=== PATIENT | female | born 1980 | race Caucasian/White ===

== ENCOUNTER 2022-09-30 13:12 | Outpatient (OUT) | payer OTHER, SELFPAY | END 2022-09-30 13:13 | disposition home or self-care (01) | LOC: PST 13:16 | PROVIDERS: Visit Provider Obstetrics & Gynecology | DX: Z01.818 Encounter for other preprocedural examination (principal); N89.8 Other specified noninflammatory disorders of vagina ==

== ENCOUNTER 2022-10-04 10:38 | Day surgery (SDC) | payer OTHER, SELFPAY ==
[2022-09-30 13:33] VITALS: BP 139/97; PULSE 63; RESP 18; TEMP 36.6; O2SAT 99; BMI 21.9
[2022-10-04] VITALS (8 sets, daily range): BP systolic 116–152; BP diastolic 70–98; PULSE 54–74; RESP 14–22; TEMP 36–36.5; O2SAT 99–100
[2022-10-04 10:46] LABS: Basophils Absolute Auto 0.1 10^3/uL (0.0-0.1); Basophils Percent Auto 0.6 % (0.2-2.0); Eosinophils Absolute Auto 0.3 10^3/uL (0.0-0.7); Eosinophils Percent Auto 4.2 % (0.9-7.0); Hematocrit 38.1 % (36.0-48.0); Hemoglobin 12.8 g/dL (12.0-16.0); Immature Granulocytes Abs Auto 0.03 10^3/uL (0.00-0.03); Immature Granulocytes Pct Auto 0.4 % (0.0-0.5); Lymphocytes Absolute Auto 2.1 10^3/uL (1.2-3.8); Lymphocytes Percent Auto 26.4 % (20.5-60.0); Mean Corpuscular HGB Conc 33.6 g/dL (29.9-35.2); Mean Corpuscular Hemoglobin 30.1 pg (26.7-34.0); Mean Corpuscular Volume 89.6 fL (81.0-99.0); Monocytes Absolute Auto 0.6 10^3/uL (0.3-0.8); Monocytes Percent Auto 7.8 % (1.7-12.0); Neutrophils Absolute Auto 4.9 10^3/uL (1.4-6.5); Neutrophils Percent Auto 60.6 % (43.0-75.0); Platelet Count 310 10^3/uL (150-450); Red Blood Count 4.25 10^6/uL (4.20-5.40); Red Cell Distribution Width 12.6 % (11.0-15.0); White Blood Count 8.1 10^3/uL (4.0-11.0)
[2022-10-04] MEDS: LACTATED RINGER'S SOLUTION 1,000 ML 50 ML IV (11:13)
[2022-10-04] MEDS: SCOPOLAMINE 1 EACH PATCH.TD.3 1 PATCH TD (11:14)
--- NOTE | 2022-10-04 14:40 | PC.NURSE ---
PATIENT HAD A RED RUBBER CATH INSERTED BY Samara WISE RN AT BEGINNING OF CASE. PATIENT HAD 200 ML OF CLEAR YELLOW URINE DRAINED FROM HER BLADDER. CATHETER WAS D/C'ED PER ORDERS.
--- NOTE | 2022-10-04 14:51 | PM.ONB ---
Brief Operative Note Date of procedure: 10/04/22 Pre-op diagnosis: lt clitoral abscess Post-op diagnosis: same Procedure: I&D of clitoral abscess. pt was taken back to or, prepped and drapped in normal sterile fashion, The clitoral abscess was identified, a small incision was made, drainage of abscess, irrigation performed after cultures obtained, exploratin of abcess peformed all contents removed, incision closed with 4-0 vicryl interrupted, excellent hemostasis, sponge lap and needle counts correct times 2 Anesthesia: GETA Surgeon: Jorge Luis Pearl Estimated blood loss (mL): 5 Pathology: none sent Condition: stable Disposition: PACU
[2022-10-04] MEDS: KETOROLAC TROMETHAMINE 30 MG/ML VIAL IVP (15:11)
[2022-10-04] MEDS: HYDROCODONE/ACETAMINOPHEN 5-325 MG TABLET 1 TAB PO (15:12)
--- NOTE | 2022-10-04 15:33 | PC.NURSE ---
peripad intact with scant bloody drainage
--- NOTE | 2022-10-04 15:37 | PC.NURSE ---
medicated for pain as ordered with Toradol and Vicodin; scant drainage on peripad
--- NOTE | 2022-10-04 16:23 | PC.NURSE ---
no active drainage from perineal area
== END 2022-10-04 16:00 | disposition home or self-care (01) ==
PROVIDERS: Visit Provider Obstetrics & Gynecology
PROC: (CPT 00400; principal; 2022-10-04 11:50)
DX: N89.8 Other specified noninflammatory disorders of vagina (principal)
CPT/HCPCS: 00400; 56405; 36415; 85025; 87070; 87076; 87150; 87186; 99999; J2704

== ENCOUNTER 2024-06-02 19:42 | Outpatient (REF) | payer OTHER, SELFPAY ==
[2024-06-07 15:08] LABS: Age Gdln ACOG Testing Note (.); HPV Aptima Negative (Negative); IGP, Aptima HPV, rfx 16/18,45 Note (.)
== END 2024-06-02 19:43 | disposition home or self-care (01) ==
LOC: LAB 19:42
PROVIDERS: Visit Provider Physician Assistant
DX: Z01.419 Encounter for gynecological examination (general) (routine) without abnormal findings (principal)
CPT/HCPCS: 87624; 88175

== ENCOUNTER 2024-07-02 09:37 | Outpatient (OUT) | payer OTHER, SELFPAY | END 2024-07-02 09:38 | disposition home or self-care (01) | LOC: PST 09:38 | PROVIDERS: Visit Provider Obstetrics & Gynecology | DX: Z01.818 Encounter for other preprocedural examination (principal); N90.7 Vulvar cyst; N94.89 Other specified conditions associated with female genital organs and menstrual cycle ==

== ENCOUNTER 2024-07-16 07:07 | Day surgery (SDC) | payer OTHER, SELFPAY ==
[2024-07-02 10:04] VITALS: BP 122/78; PULSE 63; TEMP 36.3; O2SAT 99; BMI 21.9
--- OUTSIDE RECORDS SUMMARY | 2024-07-16 07:10 | XMS_ITS | CCD ---
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 Name Role Phone KWAN, JASVIR Unavailable Unavailable KWAN, JASVIR Unavailable Unavailable Gorty, Eduardo S Unavailable Unavailable Provider, None Unavailable Unavailable KWAN, JASVIR Unavailable Unavailable KWAN, JASVIR Unavailable Unavailable Provider, Unlisted Unavailable Unavailable DO Ruthie Garsia Primary Care Provider DO Liz Taveras Attending Provider ARTIS, DR ENG Consulting Unavailable KARASIK, DR ENG Attending Unavailable [facility] Primary Care Unavailable KARASIK, DR ENG Admitting Unavailable AGUBOSIM, BEATRIS Consulting Unavailable LIZ TAVERAS Consulting Unavailable KARASIK, DR ENG Consulting Unavailable KARASIK, DR ENG Attending Unavailable [facility] Unavailable KARASIK, DR ENG Admitting Unavailable ZIEBER, DR HERNAN Rojas Consulting Unavailable KARASIK, DR ENG Admitting Unavailable KARASIK, DR ENG Consulting Unavailable [facility] Care Unavailable KARASIK, DR ENG Attending Unavailable ZIEBER, DR HERNAN Rojas Consulting Unavailable Liz Taveras Attending Unavailable Liz Taveras Admitting Unavailable Ruthie Garsia Primary Care Unavailable [facility] Primary Care Unava ilable Unavailable Primary Care Provider UnavailJULISA Golden Attending Unavailable DONNY PEARL Attending Unavailable DONNY PEARL Attending Unavailable Allergies Allergy Classification Reported Allergen(s) Allergy Type Date of Onset Reaction(s) Facility (1 source) No Known Medication Allergies; Translations: [No Known Medication Allergies] Propensity to adverse reactions to drug (disorder) [facility] Repository Problems Active Problems Problem Classification Problem Date Documented Date Episodic/Chronic Abdominal pain (3 sources) Pelvic and perineal pain; Translations: [PELVIC AND PERINEAL PAIN] Onset: 11-28-2021 Episodic Nonmalignant breast conditions (1 source) Fibroadenosis of right breast; Translations: [FIBROADENOSIS OF RIGHT BREAST] Onset: 09-05-2021 Chronic Open wounds of extremities (3 sources) Laceration without foreign body of left index finger without damage to nail, initial encounter; Translations: [Laceration of finger] Onset: 10-18-2023 Episodic Other female genital disorders (2 sources) Labial cyst; Translations: [Vulvar cyst] 06-02-2024 Episodic Other screening for suspected conditions (not mental disorders or infectious disease) (2 sources) Patient encounter status; Translations: [Encounter for screening mammogram for malignant neoplasm of breast] 06-02-2024 Episodic Substance-related disorders (1 source) Nicotine dependence, cigarettes, uncomplicated; Translations: [NICOTINE DEPEND CIGARETTES UNCOMP] Onset: 12-05-2021 Chronic Unclassified (1 source) CONTACT W/AND (SUSP) EXPOS COVID-19; Translations: [CONTACT W/AND (SUSP) EXPOS COVID-19] Onset: 12-05-2021 Past or Other Problems Problem Classification Problem Date Documented Da te Episodic/Chronic Inflammatory diseases of female pelvic organs (6 sources) Abscess of vulva; Translations: [Abscess of vulva] Onset: 11-28-2021 10-15-2022 Episodic Nonmalignant breast conditions (7 sources) Unspecified lump in the right breast, upper outer quadrant; Translations: [Unspecified lump in unspecified breast] Onset: 08-21-2021 Episodic Results Test Name Value Interpretation Reference Range Facility IGP,APTIMA HPV,AGE GDLNon AGE GDLN ACOG TESTING Note . [facility] Comment on above: TESTS RESULT FLAG UN ITS REF RANGE LAB Clinician Provided Cytology Information Source.............Vagina No. of containers..01 ThinPrep Vial Age Algo ACOG Ellie... 30-65 01 FLAG LEGEND: L-Low Normal,H-High Normal,LL-Alert Low,HH-Alert High <-Panic Low,>-Panic High,A-Abnormal,AA-Critical Abnormal Performed at: 01 =[address] [address] Steff Pineda MD, HPV APTIMA Negative Negative [facility] Comment on above: This nucleic acid am plification test detects fourteen high- risk HPV types (16,18,31,33,35,39,45,51,52,56,58,59,66,68) without differentiation. Performed at: =[address] [id number] Market Risk Specialist: Steff Pineda MD, Phone: [phone] Performed at: [address] [id number] Market Risk Specialist: Steff Pineda MD, Phone: [phone] IGP, APTIMA HPV, RFX 16/18,45 Note . [facility] Comment on above: TESTS RESULT FLAG UN ITS REF RANGE LAB DIAGNOSIS: 02 NEGATIVE FOR INTRAEPITHELIAL LESION OR MALIGNANCY. Specimen adequacy: 02 Satisfactory for evaluation. No endocervical component is identified. Performed by: Lenora Bird Movers . 02 Note: Note 02 The Pap smear is a screening test designed to aid in the detection of premalignant and malignant conditions of the uterine cervix. It is not a diagnostic procedure and should not be used as the sole means of detecting cervical cancer. Both false-positive and false-negative reports do occur. Test Methodology: Note 02 This liquid based ThinPrep(R) pap test was screened with the use of an image guided system. HPV Genotype Reflex Note 02 Criteria not met, HPV Genotype not performed. FLAG LEGEND: L-Low Normal,H-High Normal,LL-Alert Low,HH-Alert High <-Panic Low,>-Panic High,A-Abnormal,AA-Critical Abnormal Performed at: [address] [address] Steff Pineda MD, SPATULA-ALONE VAGINA [facility] WOUND CULTUREon 12-04-2021 Bacteria identified Aer cx Nom (Unsp spec) Final report Normal [facility] Comment on above: Performed By: #### C XWND #### [facility] [address] [place] [address] Dr. Yaritza Olson Result 1 Mixed skin aury Normal [facility] Comment on above: Performed By: #### C XWND #### [facility] [address] [place] [address] Dr. Yaritza Olson CBC AUTO DIFFon 11-28-2021 BASO # 0.1 103/ul Normal 0.0-0.1 [facility] Comment on above: Performed By: #### EVGENY RODRIGUEZ #### [facility] [address] [place] [address] Dr. Yaritza Olson Basophils/100 WBC (Bld) 0.5 % Normal 0.2-2.0 [facility] Comment on above: Performed By: #### MARCIE RODRIGUEZR #### [facility] [address] [place] [address] Dr. Yaritza Olson EO # 0.1 103/ul Normal 0.0-0.7 [facility] Comment on above: Performed By: #### P REGU, ERUR #### [facility] [address] [place] [address] Dr. Yaritza Olson Eosinophils/100 WBC (Bld) 0.9 % Normal 0.9-7.0 [facility] Comment on above: Performed By: #### P REGU, ERUR #### [facility] [address] [place] [address] Dr. Yaritza Olson Erythrocyte distribution width (RBC) [Ratio] 12.4 % Normal 11.0-15.0 [facility] Comment on above: Performed By: #### P REGU, ERUR #### [facility] [address] [place] [address] Dr. Yaritza Olson Hematocrit (Bld) [Volume fraction] 36.0 % Normal 36.0-48.0 [facility] Comment on above: Performed By: #### P REGU, ERUR #### [facility] [address] [place] [address] Dr. Yaritza Olson Hemoglobin (Bld) [Mass/Vol] 12.0 g/dL Normal 12.0-16.0 [facility] Comment on above: Performed By: #### P REGU, ERUR #### [facility] [address] [place] [address] Dr. Yaritza Olson IG # 0.05 10e3/ul Critically high 0.00-0.03 [facility] Comment on above: Performed By: #### P REGU, ERUR #### [facility] [address] [place] [address] Dr. Yaritza Olson IG % 0.4 % Normal 0.0-0.5 [facility] Comment on above: Performed By: #### P REGU, ERUR #### [facility] [address] [place] [address] Dr. Yaritza Olson LYMPH # 1.1 103/ul Critically low 1.2-3.8 [facility] Comment on above: Performed By: #### P REGU, ERUR #### [facility] [address] [place] [address] Dr. Yaritza Olson Lymphocytes/100 WBC (Bld) 8.6 % Critically low 20.5-60.0 [facility] Comment on above: Performed By: #### P REGU, ERUR #### [facility] [address] [place] [address] Dr. Yaritza Olson MANUAL DIFF REQ NO Normal [facility] Comment on above: Performed By: #### P REGU, ERUR #### [facility] [address] [place] [address] Dr. Yaritza Olson MCH (RBC) [Entitic mass] 30.4 pg Normal 26.7-34.0 [facility] Comment on above: Performed By: #### P REGU, ERUR #### [facility] [address] [place] [address] Dr. Yaritza Olson MCHC (RBC) [Mass/Vol] 33.3 g/dL Normal 29.9-35.2 [facility] Comment on above: Performed By: #### P REGU, ERUR #### [facility] [address] [place] [address] Dr. Yaritza Olson MCV (RBC) [Entitic vol] 91.1 fL Normal 81.0-99.0 [facility] Comment on above: Performed By: #### P REGU, ERUR #### [facility] [address] [place] [address] Dr. Yaritza Olson MONO # 0.8 103/ul Normal 0.3-0.8 [facility] Comment on above: Performed By: #### P REGU, ERUR #### [facility] [address] [place] [address] Dr. Yaritza Olson Monocytes/100 WBC (Bld) 6.2 % Normal 1.7-12.0 [facility] Comment on above: Performed By: #### P REGU, ERUR #### [facility] [address] [place] [address] Dr. Yaritza Olson NEUT # 11.1 103/ul Critically high 1.4-6.5 [facility] Comment on above: Performed By: #### P REGU, ERUR #### [facility] [address] [place] [address] Dr. Yaritza Olson Neutrophils/100 WBC (Bld) 83.4 % Critically high 43.0-75.0 [facility] Comment on above: Performed By: #### P REGU, ERUR #### [facility] [address] [place] [address] Dr. Yaritza Olson Platelet mean volume (Bld) [Entitic vol] 9.5 fL Normal 9.5-13.5 [facility] Comment on above: Performed By: #### P REGU, ERUR #### [facility] [address] [place] [address] Dr. Yaritza Olson PLT 298 103/ul Normal 150-450 [facility] Comment on above: Performed By: #### P REGU, ERUR #### [facility] [address] [place] [address] Dr. Yaritza Olson RBC 3.95 106/ul Critically low 4.20-5.40 [facility] Comment on above: Performed By: #### P REGU, ERUR #### [facility] [address] [place] [address] Dr. Yaritza Olson WBC 13.3 103/ul Critically high 4.0-11.0 [facility] Comment on above: Performed By: #### P REGU, ERUR #### [facility] [address] [place] [address] Dr. Yaritza Olson Covid-19 PCR ([facility])on 10-31 SARS-CoV-2 (COVID-19) RNA CHARLY+probe Ql (Unsp spec) Not detected Normal NOT DETECTED [facility] Comment on above: Result Comment: When diagnostic testing is negative, the possibility of a false negative should be considered in the context of a patient's recent exposures and the presence of clinical signs and symptoms consistent with SARS-CoV-2. This test is not yet approved or cleared by the [place] FDA. When there are no FDA-approved or cleared tests available, and other criteria are met, FDA can make tests available under an emergency access mechanism called an Emergency Use Authorization (EUA). The EUA for this test is supported by the [employer] of Health and Human Service's declaration that circumstances exist to justify the emergency use of in vitro diagnostics for the detection and/or diagnosis of the virus that causes COVID-19. This EUA will remain in effect for the duration of the COVID-19 declaration justifying emergency of IVDs, unless it is terminated or revoked by the FDA (after which the test may no longer be used). Performed By: #### C VDTBH #### [facility] [address] [place] [address] Dr. Yaritza Olson ER URINE PROFILEon 2 Bilirubin Ql (U) Negative Normal NEGATIVE [facility] Comment on above: Performed By: #### P REGU, ERUR #### [facility] [address] [place] [address] Dr. Yaritza Olson Clarity (U) CLEAR Normal CLEAR [facility] Comment on above: Performed By: #### P REGU, ERUR #### [facility] [address] [place] [address] Dr. Yaritza Olson Color (U) YELLOW Normal YELLOW [facility] Comment on above: Performed By: #### P REGU, ERUR #### [facility] [address] [place] [address] Dr. Yaritza Olson ERUMARY JOD A micrscopic examina tion will be performed if indicated. Normal [facility] Comment on above: Performed By: #### P REGU, ERUR #### [facility] [address] [place] [address] Dr. Yaritza Olson Glucose Ql (U) Negative Normal NEGATIVE [facility] Comment on above: Performed By: #### P REGU, ERUR #### [facility] [address] [place] [address] Dr. Yaritza Olson Hemoglobin Ql (U) Negative Normal NEGATIVE [facility] Comment on above: Performed By: #### P REGU, ERUR #### [facility] [address] [place] [address] Dr. Yaritza Olson Ketones Ql (U) TRACE Abnormal NEGATIVE [facility] Comment on above: Performed By: #### P REGU, ERUR #### [facility] [address] [place] [address] Dr. Yaritza Olson LEUKOCYTES Negative Normal NEGATIVE [facility] Comment on above: Performed By: #### P REGU, ERUR #### [facility] [address] [place] [address] Dr. Yaritza Olson Nitrite Ql (U) Negative Normal NEGATIVE [facility] Comment on above: Performed By: #### P REGU, ERUR #### [facility] [address] [place] [address] Dr. Yaritza Olson pH (U) 6.0 [pH] Normal 5-9 [facility] Comment on above: Performed By: #### P REGU, ERUR #### [facility] [address] [place] [address] Dr. Yaritza Olson SPEC GRAVITY 1.025 Normal 1.005-<=1.0 25 [facility] Comment on above: Performed By: #### P REGU, ERUR #### [facility] [address] [place] [address] Dr. Yaritza Olson UA PROTEIN TRACE Normal NEGATIVE/ TRACE [facility] Comment on above: Performed By: #### P REGU, ERUR #### [facility] [address] [place] [address] Dr. Yaritza Olson UR MICRO IND NOT INDICATED Normal [facility] Comment on above: Performed By: #### P REGU, ERUR #### [facility] [address] [place] [address] Dr. Yaritza Olson Urobilinogen Qn (U) 0.2 {Get'U}/dL Normal 0.2 - 1. 0 [facility] Comment on above: Performed By: #### P REGU, ERUR #### [facility] [address] [place] [address] Dr. Yaritza Olson HCG,Quantitativeon 2 HCG,Quantitative < 0.60 Normal [facility] Comment on above: Result Comment: Appr oximate Approximate hCG Gestational Age Range (mIU/ml) (weeks) 0.2-1 5-50 1-2 50-500 2-3 100-5,000 3-4 500-10,000 4-5 1,000-50,000 5-6 10,000-100,000 6-8 15,000-200,000 8-12 10,000-100,000 PERFORMED BY: [place] [address] PATHOLOGIST [employer] WORKER QUITA SALTER M.D. Performed By: #### H CGQNT #### [place] [address] [place] PREG HCG QUALon 11-28-2021 , QUAL Negative Normal NEGATIVE [facility] Comment on above: Performed By: #### P REG #### [facility] [address] [place] [address] Dr. Yaritza Olson PREG QUANT HCGon 11-28-2021 HCG QUANT <1 Normal [facility] Comment on above: Performed By: #### P REGQNT #### [facility] [address] [place] [address] Dr. Yaritza Olson HCG RANGE SEE BELOW Normal [facility] Comment on above: Result Comment: 5-50 0.2-1 WEEK 50-500 1-2 WEEKS 100-5,000 2-3 WEEKS 500-10,000 3-4 WEEKS 1,000-50,000 4-5 WEEKS 10,000-100,000 5-6 WEEKS 15,000-200,000 6-8 WEEKS 10,000-100,000 2-3 MONTHS Performed By: #### P REGQNT #### [facility] [address] [place] [address] Dr. Yaritza Olson Result Comment: TEST PERFORMED AT: [facility] [address] [place] [address] URon 11-28-2021 , QUAL Negative Normal NEGATIVE [facility] Comment on above: Performed By: #### P REGU, ERUR #### [facility] [address] [place] [address] Dr. Yaritza Olson PROF CHEM 8 (BAS METB)on Anion gap [Moles/Vol] 14.2 mmol/L Normal [facility] Comment on above: Performed By: #### P REGU, ERUR #### [facility] [address] [place] [address] Dr. Yaritza Olson Calcium [Mass/Vol] 8.8 mg/dL Normal 8.5-10.1 [facility] Comment on above: Performed By: #### P REGU, ERUR #### [facility] [address] [place] [address] Dr. Yaritza Olson Chloride [Moles/Vol] 103 mmol/L Normal 98-107 [facility] Comment on above: Performed By: #### P REGU, ERUR #### [facility] [address] [place] [address] Dr. Yaritza Olson CO2 [Moles/Vol] 23.4 mmol/L Normal 21.0-32.0 [facility] Comment on above: Performed By: #### P REGU, ERUR #### [facility] [address] [place] [address] Dr. Yaritza Olson Creatinine [Mass/Vol] 0.76 mg/dL Normal 0.55-1.02 [facility] Comment on above: Performed By: #### P REGU, ERUR #### [facility] [address] [place] [address] Dr. Yaritza Olson EGFR-AF CYPRIOT >60 Normal >=60 [facility] Comment on above: Performed By: #### P REGU, ERUR #### [facility] [address] [place] [address] Dr. Yaritza Olson EGFR-NON AF CYPRIOT >60 Normal >=60 [facility] Comment on above: Performed By: #### P REGU, ERUR #### [facility] [address] [place] [address] Dr. Yaritza Olson Glucose [Mass/Vol] 98 mg/dL Normal 74-106 [facility] Comment on above: Performed By: #### P REGU, ERUR #### [facility] [address] [address] [address] Yaritza Olson Potassium [Moles/Vol] 3.6 mmol/L Normal 3.5-5.1 [facility] Comment on above: Performed By: #### P REGU, ERUR #### [facility] [address] [address] [address] Yaritza Olson Sodium [Moles/Vol] 137 mmol/L Normal 136-145 [facility] Comment on above: Performed By: #### P REGU, ERUR #### [facility] [address] [place] [address] Dr. Yaritza Olson Urea nitrogen [Mass/Vol] 8.0 mg/dL Normal 7.0-18.0 [facility] Comment on above: Performed By: #### P REGU, ERUR #### [facility] [address] [place] [address] Dr. Yaritza Olson Urea nitrogen/Creatinine [Mass ratio] 10.5 mg/mg Normal [facility] Comment on above: Performed By: #### P REGU, ERUR #### [facility] [address] [place] [address] Dr. Yaritza Olson Serum or plasma beta choriog onadotropin measurement (units/volume)Ordered By: Liz Taveras on 11-28-2021 HCG.beta subunit Qn m[IU]/mL [facility] Comment on above: Approximate Approxim ate hCG Gestational Age Range (mIU/ml) (weeks) 0.2-1 5-50 1-2 50-500 2-3 100-5,000 3-4 500-10,000 4-5 1,000-50,000 5-6 10,000-100,000 6-8 15,000-200,000 8-12 10,000-100,000 US VAC ASST BX BRST RT W CLI Gage 09-10-2021 US VAC ASST BX BRST RT W CLIP Begin Addendum #1 COLLECTED DATE/TIME: 08/29/2021 10:48 EDT Final Diagnosis Report for [facility] [place], [place] RIGHT BREAST MASS AT 10 O'CLOCK, ULTRASOUND GUIDED CORE BIOPSY: -FIBROADENOMATOUS CHANGES. 09/03/[address] Humphries. Verified with Tamera that report was present in office. Original Report PROCEDURE: ULTRASOUND BIOPSY VACCUUM ASSISTED, RIGHT WITH CLIP COMPARISON: US BREAST RIGHT LIMITED, 08/21/2021. MG MAMM DIAGNOSTIC 3D SUBHASH CAD, 08/21/2021. INDICATIONS: Mammographic mass of right breast. DESCRIPTION: After obtaining informed consent, a vacuum assisted ultrasound-guided biopsy was performed in the usual sterile manner. The location of the biopsy was then marked as indicated below. FINDINGS: RECOMMENDATIONS: SPECIMEN#, LOCATION: 4 core specimens, right breast 10 o'clock hypoechoic mass. BIOPSY NEEDLE: 13 gauge Elite vacuum core biopsy needle. MARKERS(S) PLACED: A single metallic marker was placed in the appropriate targeted location. MEDICATION: Buffered 1% lidocaine with epinephrine administered locally. COMPLICATIONS: None. PATHOLOGY LAB: Pending. CONCLUSION: 1. Uneventful ultrasound-guided breast biopsy. 2. Pathology results are pending. An addendum to this report will be provided after pathology results are available. Normal [facility] MAMMO POST BIOPSY RIGHTon MAMMO POST BIOPSY RIGHT Patient: KOLE AIKEN Exam Date: 08/29/2021 : 1980 Gender:F Ordering : DR VELASQUEZ HUMPHRIES . Admission #: [id number] Family : Order #: [id number] CLICK HERE TO VIEW EXAM RADIOLOGY REPORT PROCEDURE: MAMMOGRAM POST BIOPSY IMAGES COMPARISON: MG MAMM DIAGNOSTIC 3D SUBHASH CAD, 08/21/2021. US VAC ASST BX BRST RT W CLIP, 08/29/2021. INDICATIONS: Mammographic mass of right breast BREAST COMPOSITION: FINDINGS: BIOPSY MARKER: A metallic marker has been placed in the targeted location within the posterior upper-outer quadrant of the right breast. BREAST FINDINGS: Expected post biopsy findings. RECOMMENDATIONS: Dictated by: Hernan Zhong M.D. on 08/29/2021 at 11:38 Approved by: Hernan Zhong M.D. on 08/29/2021 at 11:38 Normal [facility] MG MAMM DIAGNOSTIC 3D SUBHASH CA Don 08-21-2021 MG MAMM DIAGNOSTIC 3D SUBHASH CAD Patient: KOLE AIKEN. Exam Date: 08/21/2021 : 1980 Gender:F Ordering : DR VELASQUEZ HUMPHRIES . Admission #: [id number] Family : Order #: [id number] CLICK HERE TO VIEW EXAM RADIOLOGY REPORT PROCEDURE: MAMMOGRAM DIAGNOSTIC 3D BILATERAL CAD, 08/21/2021, 09:56 ULTRASOUND BREAST RIGHT LIMITED, 08/21/2021, 10:31 COMPARISON: US BREAST LEFT LIMITED, 11/21/2015. MG MAMM DIAGNOSTIC 3D SUBHASH CAD, 11/21/2015. INDICATIONS: Breast lump Calculator Name NCI Breast Cancer Risk Assessment Tool 5 Year Breast Cancer Risk 0.90% Lifetime Breast Cancer Risk 10.90% Personal Breast Cancer No Personal Ovarian Cancer No Treatments None Family Cancers None LOCATION: [facility] BREAST COMPOSITION: Extremely dense, which lowers the sensitivity of mammography. FINDINGS: DIAGNOSTIC CATEGORY 4--SUSPICIOUS FOR MALIGNANCY. FINDING DOES NOT EXHIBIT CLASSIC FINDINGS OF BREAST CANCER: RIGHT BREAST: New 1 cm partially circumscribed mass within the posterior upper-outer quadrant. Ultrasound evaluation demonstrates a hypoechoic slightly heterogeneous but well-circumscribed 1.3 x 1.1 x 0.7 cm mass within the posterior upper-outer quadrant, 10 o'clock position within the axillary tail. Ultrasound-guided tissue sampling is recommended. Findings, recommendations, and alternatives were discussed with the patient. The patient desires to proceed with biopsy. Our radiology department nurse is working with the patient to schedule biopsy. LEFT BREAST: No significant suspicious finding. RECOMMENDATIONS: ULTRASOUND-GUIDED CORE BIOPSY: RIGHT BREAST PLEASE NOTE: A NORMAL MAMMOGRAM DOES NOT EXCLUDE THE POSSIBILITY OF BREAST CANCER. A CLINICALLY SUSPICIOUS PALPABLE LUMP SHOULD BE BIOPSIED. Dictated by: Hernan Zhong M.D. on 08/21/2021 at 10:49 Approved by: Hernan Zhong M.D. on 08/21/2021 at 11:10 Normal [facility] US BREAST RIGHT LIMITEDon US BREAST RIGHT LIMITED Patient: KOLE AIKEN. Exam Date: 08/21/2021 : 1980 Gender:F Ordering : DR VELASQUEZ HUMPHRIES . Admission #: [id number] Family : Order #: [id number] CLICK HERE TO VIEW EXAM RADIOLOGY REPORT PROCEDURE: MAMMOGRAM DIAGNOSTIC 3D BILATERAL CAD, 08/21/2021, 09:56 ULTRASOUND BREAST RIGHT LIMITED, 08/21/2021, 10:31 COMPARISON: US BREAST LEFT LIMITED, 11/21/2015. MG MAMM DIAGNOSTIC 3D SUBHASH CAD, 11/21/2015. INDICATIONS: Breast lump Calculator Name NCI Breast Cancer Risk Assessment Tool 5 Year Breast Cancer Risk 0.90% Lifetime Breast Cancer Risk 10.90% Personal Breast Cancer No Personal Ovarian Cancer No Treatments None Family Cancers None LOCATION: [facility] BREAST COMPOSITION: Extremely dense, which lowers the sensitivity of mammography. FINDINGS: DIAGNOSTIC CATEGORY 4--SUSPICIOUS FOR MALIGNANCY. FINDING DOES NOT EXHIBIT CLASSIC FINDINGS OF BREAST CANCER: RIGHT BREAST: New 1 cm partially circumscribed mass within the posterior upper-outer quadrant. Ultrasound evaluation demonstrates a hypoechoic slightly heterogeneous but well-circumscribed 1.3 x 1.1 x 0.7 cm mass within the posterior upper-outer quadrant, 10 o'clock position within the axillary tail. Ultrasound-guided tissue sampling is recommended. Findings, recommendations, and alternatives were discussed with the patient. The patient desires to proceed with biopsy. Our radiology department nurse is working with the patient to schedule biopsy. LEFT BREAST: No significant suspicious finding. RECOMMENDATIONS: ULTRASOUND-GUIDED CORE BIOPSY: RIGHT BREAST PLEASE NOTE: A NORMAL MAMMOGRAM DOES NOT EXCLUDE THE POSSIBILITY OF BREAST CANCER. A CLINICALLY SUSPICIOUS PALPABLE LUMP SHOULD BE BIOPSIED. Dictated by: Hernan Zhong M.D. on 08/21/2021 at 10:49 Approved by: Hernan Zhong M.D. on 08/21/2021 at 11:10 Normal [facility] Intraoperative Noteon 2017 Intraoperative Note [id number]#1.00OT[facility] History and Physicalon 08-20 History and Physical [id number]#1.00OT[facility]IFF [facility] Operative Report - Surgeon/P chikis 08-20-2017 Operative Report - Surgeon/Physician [id number][facility] 08-20-2017 Provider Orders [id number]#1.00[facility] Ord[facility] 08-15-2017 Provider Orders [id number]#1.00[facility]R Intraoperative Recordon 07-23-2017 MAGR Intraoperative Record MAGR Intra-Op Record Summary Primary Physician: Jasvir Clark DO Finalized Date/Time: 07/23/17 17:05:06 Pt. Name: KOLE AIKEN Ila Miller/Sex: 1980 FEMALE Med Rec #: [id number] Physician: Jasvir Clakr DO Financial #: [id number] Pt. Type: D Room/Bed: / Admit/Disch: 07/15/17 05:53:34 - 07/15/17 10:31:00 Institution: Case Times MAGR Entry 1 Patient In Room Time 07/15/17 08:02:00 Out Room Time 07/15/17 09:41:00 Anesthesia Start Time 07/15/17 08:02:00 Stop Time 07/15/17 09:41:00 Surgery Start Time 07/15/17 08:24:00 Stop Time 07/15/17 09:35:00 Last Modified By: Sarah Beth Restrepo 07/15/17 12:20:55 Case Attendance MAGR Entry 1 Entry 2 Entry 3 Case Attendee Jasvir Clark DO, Satya S MD Cartier, Cynthia M Role Performed Surgeon - Primary Anesthesiologist of Conference Reservationist Record Time In 07/15/17 08:02:00 07/15/17 08:02:00 07/15/17 08:02:00 Time Out 07/15/17 09:41:00 07/15/17 09:41:00 07/15/17 09:41:00 Procedure Laparoscopy Diagnostic Laparoscopy Diagnostic Laparoscopy Diagnostic Last Modified By: Sarah Beth Restrepo Cynthia M Cartier, Cynthia M 07/15/17 12:11:56 07/15/17 12:21:02 07/15/17 12:11:56 Entry 4 Entry 5 Entry 6 Case Attendee Michelle Stark RN [employer]ARD [employer], Renee Ramey Role Performed Conference Reservationist [employer] Off Bearer Scrub Personnel Time In 07/15/17 08:02:00 07/15/17 08:02:00 07/15/17 08:02:00 Time Out 07/15/17 09:41:00 07/15/17 09:41:00 07/15/17 09:41:00 Procedure Laparoscopy Diagnostic Laparoscopy Diagnostic Laparoscopy Diagnostic Last Modified By: Sarah Beth Restrepo Cynthia M Cartier, Cynthia M 07/15/17 12:11:56 07/15/17 12:11:56 07/15/17 12:11:56 Entry 7 Case Attendee Theresa Payan [employer] Role Performed Scrub Personnel Time In 07/15/17 08:02:00 Time Out 07/15/17 09:41:00 Procedure Laparoscopy Diagnostic Last Modified By: Sarah Beth Restrepo 07/15/17 12:11:56 Surgical Procedures MAGR Pre-Care Text: A.20 Verifies operative procedure, surgical site, and laterality Im.150 Develops individualized plan of care Entry 1 Procedure Laparoscopy Diagnostic Primary Procedure Yes Primary Surgeon Jasvir Clark DO Surgeon Comment OPERATIVE LAPARSCOPY; ADHEDOLYSIS; LEFT OVARIAN CYSTECTOMY Start 07/15/17 08:24:00 Stop 07/15/17 09:15:00 Anesthesia Type General Surgical Service Gynecology Wound Class Clean Last Modified By: Estelle Fonseca RN 07/23/17 17:04:55 Post-Care Text: O.730 The patient's care is consistent with the individualized perioperative plan of care General Case Data MAGR Pre-Care Text: A.350.1 Classifies surgical wound Entry 1 Case Information OR MAGR OR 01 Case Level Level 4 Wound Class Clean Specialty Gynecology ASA Class 2 Diagnosis Preop Diagnosis PELVIC PAIN Postop Same As Preop Yes Postop Diagnosis PELVIC PAIN Last Modified By: Estelle Fonseca RN 07/23/17 17:05:04 Post-Care Text: O.760 Patient receives consistent and comparable care regardless of the setting Time Out MAGR Entry 1 Time out date/time 07/15/17 08:21:00 All team members Yes have introduced themselves by name and role Surgeon, Yes Surgeon reviews Yes anesthesia, nurse critical or confirm patient, unexpected steps, site, procedure operative duration, anticipated blood loss Anesthesia team Yes Nursing team Yes reviews any reviews sterility patient-specific (including concerns indicator results) and equipment issues/concerns Antibiotic Antibiotic N/A prophylaxis given within the last 60 minutes Is essential N/A imaging displayed? Last Modified By: Sarah Beth Restrepo 07/15/17 08:50:07 Patient Positioning MAGR Pre-Care Text: A.280 Identifies baseline musculoskeletal status Im.40 Positions the patient Im.80 Applies safety devices Entry 1 Procedure Laparoscopy Diagnostic Body Position Low Lithotomy Left Arm Position Extended on padded arm Right Arm Position Extended on padded arm board board Left Leg Position Secured in Stirrup Right Leg Position Secured in Stirrup Feet Uncrossed? Yes Press Points Checked Yes Positioning Device Safety Strap Outcome Met (O.80) Yes Last Modified By: Sarah Beth Restrepo 07/15/17 08:52:26 Post-Care Text: E.290 Evaluates musculoskeletal status O.80 Patient is free from signs and symptoms of injury related to positioning Skin Prep MAGR Pre-Care Text: A.30 Verifies allergies Im.270 Performs skin preparation Im.270.1 Implements protective measures to prevent skin and tissue injury due to chemical sources Entry 1 Skin Prep Syntegrity Prep Agents (Im.270) Povidone-Iodine, Prep By Sarah Beth Restrepo, Chlorhexidine Gluconate Michelle Stark RN and Alcohol Prep Area (Im.270) Abdomen, Vagina and Skin Prep Agent Dry Yes perineum Without Pooling Hair Removal Syntegrity Hair Removal Methods No hair removal performed Outcome Met (O.100) Yes Last Modified By: Sarah Beth Restrepo 07/15/17 09:02:53 Post-Care Text: E.10 Evaluates for signs and symptoms of physical injury to skin and tissue O.100 Patient is free from signs and symptoms of chemical injury Counts Verification MAGR Pre-Care Text: A.20 Verifies operative procedure, surgical site, and laterality A.20.2 Assesses the risk for unintended retained foreign body Im.20 Performs required counts Entry 1 Procedure Laparoscopy Diagnostic Counts Verification Initial Counts Items included in Instruments, Sponges, Initial Counts Sarah Beth Restrepo, the Initial Count Sharps Performed By Renee Mendenhall Initial Count Time 07/15/17 08:10:00 Counts Verification Final Counts Items Included in Sponges, Sharps Final Count Status Correct Final Count Final Counts Sarah Beth Restrepo, Final Count Time 07/15/17 09:05:00 Performed By Renee Mendenhall Surgeon notified of Yes final counts status Outcome Met (O.20) Yes Last Modified By: Sarah Beth Restrepo 07/15/17 12:20:40 Post-Care Text: E.50 Evaluates results of the surgical count O.20 Patient is free from unintended retained foreign objects Patient Care Devices MAGR Pre-Care Text: A.200 Assesses risk for normothermia regulation A.40 Verifies presence of prosthetics or corrective devices Im.280 Implements thermoregulation measures Im.60 Uses supplies and equipment within safe parameters Entry 1 Entry 2 Equipment Type FORCED WARM AIR UNIT FLOWTRON CALF CUFF REG Serial ?# [id number] Equipment Setting 43C FACTORY SETTING Last Modified By: Sarah Beth Restrepo Cynthia M 07/15/17 09:04:32 07/15/17 09:04:32 Post-Care Text: E.10 Evaluates signs and symptoms of physical injury to skin and tissue O.700 Patient is free from signs and symptoms of injury caused by extraneous objects Cautery MAGR Pre-Care Text: A.240 Assesses baseline skin condition A.40 Verifies presence of prosthetics or corrective devices Im.50 Implements protective measures to prevent injury due to electrical sources Entry 1 ESU Type Electrosurgical Unit Identification 5603 Number ESU Settings Syntegrity Cut Setting 0 Coag Setting 20 Grounding Pad Details Grounding Pad Yes Verified By Sarah Beth Restrepo Needed? Grounding Pad Site Table Grounding Pad Within Expiration Yes Date? Outcome Met (O.10) Yes Last Modified By: Sarah Beth Restrepo 07/15/17 09:05:32 Post-Care Text: E.10 Evaluates for signs and symptoms of physical injury to skin and tissue O.10 Patient is free from signs and symptoms of injury related to thermal sources Medication Administration MAGR Pre-Care Text: A.210 Identifies physiological status Im.220 Administers prescribed medications Entry 1 Time Administered 07/15/17 09:15:00 Medication 0.25% MARCAINE WITH EPI Route of Admin Incisional/Surgical Site Volume 30 mL By Jasvir Clark DO Outcome Met (O.130) Yes Last Modified By: Sarah Beth Restrepo 07/15/17 09:31:09 Post-Care Text: E.20 Evaluates response to medications O.130 Patient receives appropriately administered medication(s) Dressing/Packing MAGR Pre-Care Text: A.350 Assesses susceptibility for infection Im.290 Administer care to wound sites Entry 1 Skin Prep Agent Yes Site Abdomen Removed Prior to Dressing? Wound closure Primary Dressing Item Details Tape (Im.290) Wound Closure Strip Outcome Met Yes Last Modified By: Sarah Beth Restrepo 07/15/17 13:56:44 Post-Care Text: E.200 Evaluates progress of wound healing O.200 Patient's wound perfusion is consistent with or improved from baseline levels Departure from OR MAGR Entry 1 Present on Depart Oxygen Via Stretcher Post-op Destination Pringle Skin DFO Condition Intact Description Condition Warm Description Condition Dry Description Report Given To Scarlett Botello RN Airway Maintenance Patient Status Stable Oxygen in Use? Yes Airway Device Simple mask Flow Rate 8 L/min Last Modified By: Sarah Beth Restrepo 07/15/17 13:56:59 Case Comments Finalized By: Estelle Fonseca RN Document Signatures Signed By: Sarah Beth Restrepo 07/15/17 14:10 Estelle Fonseca RN 07/23/17 17:05 Unfinalized History Date/Time Username Reason for Unfinalizing Freetext Reason for Unfinalizing 07/23/17 17:04 [id number] Correct Documentation change specialty service Normal [facility] Coding Summaryon 07-21-2017 Coding Summary CODING DATE: 018 [facility] STATUS: Home PAYOR: Medicaid HMO ADMIT DX: REASON FOR VISIT DX: R10.2 Pelvic and perineal pain N83.209 Unspecified ovarian cyst, unspecified side FINAL DX: PRINCIPAL: R10.2 Pelvic and perineal pain SECONDARY: N83.202 Unspecified ovarian cyst, left side 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 However, the narrative phrase printed from the coding software may appear abbreviated, or result in slightly different terminology. Coded By: Marysol Oliver Date Saved: 07/21/2017 07:04 am [facility] Consent Formson 07-16-2017 Consent Forms [id number]#1.00[facility] Intraoperative [facility] 2017 Intraoperative Note [id number]#1.00[facility] Telemetry Stripson 8 Telemetry Strips [id number]#1.00[facility] Anesthesia Noteon 07-15-2017 Anesthesia Note Patient: ELAN AIKEN : 36 years Sex: FEMALE : [birth year]Associated Diagnoses: NoneAuthor: Eduardo Bah MDPostoperative InformationPost Operative Note: Post Anesthesia Care Unit.Health StatusAllergies:Allergic Reactions (All)No Known Medication AllergiesPhysical ExaminationGeneral: No acute distress.Respiratory: Respirations are non-labored.Review / ManagementCondition: Stable.AssessmentAnestheti c outcomeNo anesthetic complications noted.Adequate pain relief.No Complaint of nausea and vomiting.PlanTransfer/ Discharge: Patient can be discharged from PACU when criteria met.Condition stable.[Electronically Signed on: 07/15/2017 09:42 EDT] Eduardo Bah MD[Verified on: 07/15/2017 09:42 EDT] Eduardo Bah MD [facility] Anesthesia Note Patient: ELAN AIKEN : 36 years Sex: FEMALE : [birth year]Associated Diagnoses: NoneAuthor: Niurka, Eduardo S MDPreoperative InformationAnesthesia history: Patient history: Nausea and vomiting with anesthesia, No difficult intubation, No malignant hyperthermia. Family history: No malignant hyperthermia.Review of SystemsRespiratory: No shortness of breath, No apnea.Cardiovascular: No known NM, No chest pain.Gastrointestinal: No heartburn.Health StatusAllergies:Allergic Reactions (All)No Known Medication AllergiesCurrent medications:Home Medications (1) Activeibuprofen 600 mg oral tablet 600 mg = 1 tab(s), PO, u5siHbawrlr list (past medical history):All ProblemsSmoker / SNOMED CT 149761909 / ConfirmedHistoriesFamily History:No family history items have been selected or recorded.Procedure history:Tubal ligation (402769517).Dilation and curettage (94271476).Comments:07/02/19 14:00 - Meagan Hernandez YEh8Saiidntybe of breast ([id number]).Comments:2017 14:00 Meagan Aguilar RNleftTonsillectomy and adenoidectomy (928306586).Social History Alcohol Assessment Use: Current. Beer, 1-2 times per week Tobacco Assessment 5-9 cigarettes (between 1/4 to 1/2 pack)/day in last 30 days Tobacco Use:..Physical ExaminationVS/Measurements Vital Signs (last 24 hrs) Last ChartedHeart Rate Peripheral L56 bpm (JUL 15 06:12)Resp Rate 16 br/min (JUL 15 06:12)SBP 127 mmHg (JUL 15 06:15)DBP 81 mmHg (JUL 15:15)SpO2 100 % (JUL 15 06:12)Pain assessment: Self-reports no pain.General: Alert and oriented, No acute distress.Airway: Mallampati classification: I (soft palate, fauces, uvula, pillars visible). Mouth: Within normal limits.Review / ManagementLaboratory ResultsPlanAmerican Society of Anesthesiologists#(ASA) physical status classification: Class II.Anesthetic Preoperative PlanAnesthesia: General.. Anesthetic plan, risks, benefits, and alternatives discussed with the patient and/or family. Patient verbalized understanding. Family/Guardian present. Informed consent was given. Consent was signed by the patient.[Electronically Signed on: 07/15/2017 07:32 EDT] Eduardo Bah MD[Verified on: 07/15/2017 07:32 EDT] Eduardo Bah MD Normal [facility] Inpatient Clinical Summaryon 07-15-2017 Inpatient Clinical Summary [facility] SURGERYClinical Discharge SummaryPERSON INFORMATIONName KOLE AIKEN Age 36 Years [birth year]Sex FEMALE Language Mohawk PCP Provider, UnlistedMarital Status [facility] Acct# Arrival 07/15/17 05:53:34Visit Reason DX LAP - PELVIC PAIN Acuity LOS 022 00:22Address:[address] [address]Cnhlfxc:PROVIDER INFORMATIONVITALS INFORMATIONVital Sign Triage LatestTemp OralTemp TemporalTemp IntravascularTemp AxillaryTemp Oidzae50 Sat 100 % 100 %Respiratory Rate 14 br/min 11 br/minPeripheral Pulse Rate 60 bpm 79 bpmApical Heart RateBlood Pressure 122 mmHg / 87 mmHg 132 mmHg / 76 mmHgComment:MEDICAL INFORMATIONAllergy Info:No Known Medication AllergiesPrescriptions Given:Prescription Displayacetaminophen-hydro codone (Latah 5 mg-325 mg oral tablet) 1 tab(s), PO, q6hr, Instructions: may take 1 or 2 tablets not to exceed 8 tablets/day, # 12 tab(s), 0 Refill(s), 07/17/17Home Meds Displayibuprofen (ibuprofen 600 mg oral tablet) 1 tab(s) ( 600 mg ), PO, q6hr, # 40 tab(s), 0 Refill(s)Medication List:Fill New Prescriptions:acetaminophe n-hydrocodone (Latah 5 mg-325 mg oral tablet) 1 tab(s) Oral Every 6 hours may take 1 or 2 tabletsnot to exceed 8 tablets/dayContinue These Medications:ibuprofen (ibuprofen 600 mg oral tablet) 600 mg Oral Every 6 hoursComment:Lab and Radiology ResultsLaboratory or Other Results This Visit (last charted value for your 07/15/2017 visit) No Laboratory or Other Results This VisitDIET & ACTIVITYPatient Activity Level:Patient Diet:Patient Activity Restrictions:DISCHARGE INFORMATIONDischarge Disposition:Discharge Location:DEPART REASON INCOMPLETE INFORMATIONPATIENT EDUCATION INFORMATIONInstructions:Di agnostic Laparoscopy, Care After - Dr Clark (MHKHARRISON)Follow up:With: Address: When:Jasvir Clark [address] [place] [address] Business (1) In 2 weeks 07/29/17Comments:Call for follow up appointmentWith: Address: When:Unlisted ProviderDIAGNOSIS1:Pelvic and perineal pain; 2:Ovarian cyst, leftComment:PHYS DOC NOTES Normal [facility] Inpatient Patient Summaryon 07-15-2017 In[place] [address] patient Discharge InstructionsName: KOLE AIKEN LDOB: [birth year] Address: [address] [place] [address] Care Provider:Name: Provider, UnlistedPhone:After you are discharged if you find you have any questions, please, call [phone] ext [phone] to speak to a nurse.Discharge Diagnosis: 1:Pelvic and perineal pain; 2:Ovarian cyst, leftIf you received any narcotics, sedation, or any other medication that causes drowsiness for the next 24 hours, unless otherwise directed:? Do not drive a car.? Do not operate machinery such as power tools, lawn mowers, drills, sewing machines, or stoves? Avoid alcoholic beverages and drugs for allergies, nerves, or sleep? Do not make important personal or business decisions or sign any legal documentsUniversity Hospitals Ahu[facility] would like to thank you for allowing us to assist you with your healthcare needs. The following includes patient education materials and information regarding your injury/illness.KOLE AIKEN has been given the following list of follow-up instructions, prescriptions, and patient education materials:Follow-up InstructionsWith: Address: When:Jasvir Clark [address] [id number] [employer] (1Betterific In 2 weeks 07/29/17Comments:Call for follow up appointmentWith: Address: When:Unlisted ProviderMedicationsDuring the course of your visit, your medication list was updated with the most current information. The details of those changes are reflected below:New MedicationsPrinted Prescriptionsacetaminophen -hydrocodone (Latah 5 mg-325 mg oral tablet) 1 tab(s) Oral Every 6 hours. may take 1 or 2 tabletsnot to exceed 8 tablets/day. Refills: 0.Medications to Continue That Have Not ChangedOther Medicationsibuprofen (ibuprofen 600 mg oral tablet) 1 tab(s) Oral Every 6 hours.It is important to always keep an active list of medications available so that you can share with other providers and manage your medications appropriately. As an additional courtesy, we are also providing you with your final active medications list that you can keep with you.acetaminophen-hydrocod one (Latah 5 mg-325 mg oral tablet) 1 tab(s) Oral Every 6 hours. may take 1 or 2 tabletsnot to exceed 8 tablets/day. Refills: 0.ibuprofen (ibuprofen 600 mg oral tablet) 1 tab(s) Oral Every 6 hours.Take only the medications listed above. Contact your doctor prior to taking any medications not on this list.Diet & ActivityPatient Activity Level:Patient Diet:Patient Activity Restrictions:Comment:Maeve phillip education materials, if any, will display belowDiagnostic Laparoscopy, Care AfterRefer to this sheet in the next few weeks. These instructions provide you with information about caring for yourself after your procedure. Your health care provider may also give you more specific instructions. Your treatment has been planned according to current medical practices, but problems sometimes occur. Call your health care provider if you have any problems or questions after your procedure.WHAT TO EXPECT AFTER THE PROCEDUREAfter your procedure, it is common to have mild discomfort in the throat and abdomen.HOME CARE INSTRUCTIONS? Take flkd-pps-yznsgla and prescription medicines only as told by your health care provider.? Do not drive for 48 hours or while still taking narcotic pain medications? Walk daily and frequently throughout the day. No heavy exercise until after 2 weeks postoperativley? Do not take baths, swim, or use a hot tub until your health care provider approves. You may shower daily ? Follow instructions from your health care provider about how to take care of your incision. Make sure you:? Wash your hands with soap and water before you change your bandage (dressing). If soap and water are not available, use hand exhibitions and collections manager.? Change your dressings (Band Aids) daily after shower.? Leave adhesive strips in place until they peel off partially then remove them.? Check your incision area every day (with just washed or sanitized hands only), for signs of infection.? More redness, swelling, or pain.? More fluid or blood.? Warmth. ? Pus or a bad odor Shoulder pain may occur after surgery occassionaly. Increased walking and pain medicine will help ease this and pain will resolve within 12 hours.SEEK MEDICAL CARE IF:? You feel light-headed or faintness unrelated to pain medication usage? You are unable to pass gas or unable to have a bowel movement.? You feel nauseous or you vomit.? You develop a rash.? You have more redness, swelling, or pain around your incisions? You have more fluid or blood coming from your incisions.? You have pus or a bad odor coming from your incisions? You have a fever or chills.SEEK IMMEDIATE MEDICAL CARE IF:? Your pain is getting worse.? You have ongoing vomiting.? The edges of your incision open up.? You have trouble breathing.? You have chest pain.This information is not intended to replace advice given to you by your health care provider. Make sure you discuss any questions you have with your health care provider.Document Released: 02/26/2016 Document Reviewed: 02/26/2016[employer] Interactive Patient Education ?2016 [employer]Viruses or BacteriaWhat?s got you sick?Antibiotics only treat bacterial infections. Viral illnesses cannot be treated with antibiotics. When an antibiotic is not prescribed, ask your healthcare professional for tips on how to relieve symptoms and feel better. Usual CauseIllness Viruses Bacteria Antibiotic NeededCold/Runny Nose NOBronchitis/Chest Cold (in otherwise healthy children and adults) NOWhooping Cough YesFlu NOStrep Throat YesSore Throat (except strep) NOFluid in the middle ear (otitis media with effusion) NOUrinary Tract Infection YesAntibiotics Aren?t Always the Answerwww.cdc.gov/getsmart GETSMARTKnow When Antibiotics Nickie.[facility] Health and Human ServicesRegency Hospital Toledoers for Disease Control and Prevention November 2013 [facility] MAGR PACU Recordon 8 MAGR PACU Record MAGR PACU Record [facility] adolfo Primary Physician: Jasvir Clark DO Finalized Date/Time: 07/15/17 10:26:17 Pt. Name: KOLE AIKEN D.O.B./Sex: 1980 FEMALE Med Rec #: [id number] Physician: Jasvir Clark DO Financial #: [id number] Pt. Type: D Room/Bed: / Admit/Disch: 07/15/17 05:53:34 - Institution: PACU Case Times MAGR Entry 1 In PACU I 07/15/17 09:40:00 Ready for PACU I 07/15/17 10:05:00 Discharge Discharge from PACU 07/15/17 10:05:00 I Last Modified By: Scarlett Botello RN 07/15/17 10:26:14 General Comments: Awake, aware, vital signs stable on room air. Respiration deep and regular. Deep breathing and coughing with good effort. Small amount of dark red drainage noted at RLQ incision, reinforced with 2x2. Josselin pad dry. Rates surgical pain at 6, no facial grimace. Denying nausea. ECG shows RSR. Discharge to nursing unit per Dr Bah using discharge criteria. Finalized By: Scarlett Botello RN Document Signatures Signed By: Scarlett Botello RN 07/15/17 10:26 [facility] MAGR Postoperative Recordon 07-15-2017 MAGR Postoperative Record MAGR Phase II Record Summary Primary Physician: Jasvir Clark DO Finalized Date/Time: 07/15/17 11:31:59 Pt. Name: KOLE AIKENO.B./Sex: 1980 FEMALE Med Rec #: [id number] Physician: Jasvir Clark DO Financial #: [id number] Pt. Type: D Room/Bed: / Admit/Disch: 07/15/17 05:53:34 - Institution: Phase II Case Times MAGR Pre-Care Text: Patient is free from s/s of injury. Patient remains free from compromised physical state related to surgery or anesthesia. Patient comfort maintained. Patient/family verbalize understanding of discharge instructions. Entry 1 In PACU II 07/15/17 10:05:00 Discharge from PACU 07/15/17 11:31:00 II Last Modified By: Elisha Craig 07/15/17 11:31:50 Post-Care Text: The patient remains free from s/s of injury. Patient's vital signs stable, circulation maintained, return to preop mental and physical status, opsite/dressing intact, minimal or absent nausea and vomiting, tolerates po intake. Patient verbalizes adequate pain control. Patient/family express understanding of discharge instructions. Finalized By: Elisha Craig Document Signatures Signed By: Elisha Craig 07/15/17 [facility]2017 [facility] Preoperative Record MAGR Pre-Op Record Summary Primary Physician: Jasvir Clark DO Finalized Date/Time: 07/15/17 08:03:31 Pt. Name: KOLE AIKEN/Sex: 1980 FEMALE Med Rec #: [id number] Physician: Jasvir Clark DO Financial #: [id number] Pt. Type: D Room/Bed: / Admit/Disch: 07/15/17 05:53:34 - Institution: Pre-Op Case Times MAGR Pre-Care Text: Patient will be optimally prepared for surgery. Patient is free from s/s of injury. Provide information to patient/family related to plan of care. Verify patient allergies. Confirm identity and verify consent before the operative or invasive procedure. Entry 1 Patient Arrival Time 07/15/17 06:05:00 Preop Departure 07/15/17 08:02:00 Last Modified By: Grisel Conley RN 07/15/17 08:03:29 Post-Care Text: Patient is prepared mentally and physically and is ready for surgery. The patient remains free from s/s of injury. Patient/family express understanding of plan of care and participate in decisions affecting his or her perioperrative plan of care. Allergies documented appropriately. Patient identifiers and consent correct. General Comments: arrives ambulatory to psw, denies recent cp, sob, new illnesses, pacemaker, Finalized By: Grisel Conley RN Document Signatures Signed By: Grisel Conley RN 07/15/17 08:03 Normal [facility] Operative Report - Surgeon/P chikis 07-15-2017 Operative Report - Surgeon/Physician DATE OF PROCEDURE: 07/15/2017PREOPERATIVE DIAGNOSES: Pelvic pain, ovarian cysts.POSTOPERATIVE DIAGNOSES: Pelvic pain, ovarian cysts.PROCEDURE: Diagnostic laparoscopy, operative laparoscopy, left ovariancystectomy, bowel adhesiolysis.SURGEON: Jsavir Clark DOANESTHESIA: General by Eduardo Bah M.D.COMPLICATIONS: None.ESTIMATED BLOOD LOSS: 40 ccFLUIDS: Approximately 1500 cc of Lactated Ringer's.URINE OUTPUT: The patient emptied bladder just prior to the beginning ofthe procedure.FINDINGS: Cervix is short, closed and posterior. Laparoscopic findings:Uterus with one tiny pedunculated anterior uterine fibroid approximately 4 mmin diameter, otherwise normal; left ovarian cyst, hemorrhagic approximately1.5 cm in diameter, tubes bilaterally status post tubal with Filshie clips;right ovary within normal limits, bowel adhesions to the right sidewallobscuring the appendix noted adhesions, filmy, moderate.PROCEDURE: The patient was taken to the operating room and placed in thesupine position. After adequate general anesthesia, she was placed into thedorsolithotomy position and was prepped and draped in the normal sterilefashion. Next, a weighted speculum was placed into the patient's vagina andthe anterior aspect of the cervix was then grasped with a single toothtenaculum. An Terril uterine manipulator was then advanced into the cervix toprovide a means to manipulate the uterus. The speculum was then removed fromthe vagina. Attention was then turned to the patient's abdomen, where a 5 mmskin incision was made in the infraumbilical fold. The Veress needle wasthen carefully introduced into the peritoneal cavity at a 45 degree anglewhile tenting the abdominal wall. Intraperitoneal placement was confirmed bythe use of a water filled syringe and then a drop in intra-abdominal pressurewith insufflation with CO2 gas. The trocar and sleeve were advanced withoutdifficulty into the abdomen where intra-abdominal placement was confirmed bythe laparoscope. Pneumoperitoneum was obtained with approximately 2 litersof CO2 gas and the 5 mm trocar and sleeve were advanced without difficultywhere placement was confirmed by laparoscope. A second skin incision wasthen made 2 cm above the pubic symphysis in the right lower quadrant. Thesecond trocar and sleeve (5 mm) was then advanced under direct visualization.A third skin incision was then made 2 cm above the pubic symphysis in theleft lower quadrant. The third trocar and sleeve (5 mm) was then advancedunder direct visualization as well. A survey of the patient's pelvis andabdomen revealed the findings as noted in findings. Initially the grasperwas placed through the second trocar site grasping the left ovary noting abulbous hemorrhagic cyst on the left. This was grasped and then the LigaSurewas placed into the third trocar site. The left ovarian hemorrhagic cyst wasthen grasped. Needle aspirator was passed through the 2nd trocar sitetemporarily to aspirate the cyst and then the LigaSure was placed in throughthe open incision and the cyst wall was removed with the LigaSure. It wasgrasped, coagulated and cut until the cyst wall was removed. The remainingportion of the left ovarian cyst was then electrocauterized with the LigaSureand the spatula until good hemostasis was noted. There was no endometriosispresent anywhere. The one tiny fibroid is felt to be inconsequential. Theleft ovarian cyst was removed. The right ovary was within normal limits.Then observation of the bowel noted filmy bowel adhesions on the right sidewall obscuring the appendix disallowing observation of the appendix. Thefilmy adhesions were then grasped with a LigaSure, coagulated and cut untilthe bowel came down and then the probe was used to find the appendix andpictures were taken noting a normal appendix. One other small cyst in theleft ovary was left alone as it was perhaps 3 mm in diameter andnon-erythematous. Noting no other findings of abnormalities, a small amountof blood was in the cul-de-sac and then the Kadie post tronic machine operator was placedthrough the second trocar site and the area was irrigated and suctioned. Theinstruments were then removed from the patient's abdomen and the incisionswere then repaired with 4-0 Vicryl in a subcuticular manner. Marcaine 0.25%,20 cc was injected into the incision sites. The Terril uterine manipulatorwas then removed from the vagina with no bleeding noted from the cervix. Thepatient tolerated the procedure well. Sponge, lap, needle and instrumentcounts were correct x2. The patient was taken to the recovery room awake andin stable condition.BRANDYN Fierro #: [id number]: 07/15/2017T: 07/15/2017[Electronically Signed on: 07/16/2017 18:21 EDT] Jasvir Clark DO, D.O.[Verified on: 07/16/2017 18:21 EDT] Jasvir Clark DO, D.O.[Transcribed on: 07/15/2017 14:26 EDT][facility] Progress Note - Nurseon 06-29 Progress Note - Nurse Pre op phone call made, spoke with patient. Confirmed time of arrival for 0600 on 07/15/17[Electronically Signed on: 07/14/2017 10:27 EDT] Sandra Hernandes RN[Verified on: 07/14/2017 10:27 EDT] Sandar Hernandes RN [facility] Coding Summaryon 07-11-2017 Coding Summary CODING DATE: 018 [facility] STATUS: Home PAYOR: Medicaid HMO ADMIT DX: REASON FOR VISIT DX: Z01.812 Encounter for preprocedural laboratory examination FINAL DX: PRINCIPAL: Z01.812 Encounter for preprocedural laboratory examination SECONDARY: R10.2 Pelvic and perineal pain PROCEDURES DOCTOR NAME DATE NOTE: The code number assigned matches the documented diagnosis and / or procedure in the patient's chart. However, the narrative phrase printed from the coding software may appear abbreviated, or result in slightly different terminology. Coded By: Vicky Angel Date Saved: 07/11/2017 08:10 am Normal [facility] .Auto Diff 1on 07-01-2017 Auto Baso % 0.6 % Normal 0.2-2.0 [facility] Comment on above: Performed By: #### 7 [id number], [id number] ####[facility] (DEFAULT)[address] [place] [address] Auto [place] % 8 % Normal 1-12 [facility] Comment on above: Performed By: #### 7 [id number], [id number] ####[facility] (DEFAULT)[address] [place] [address] Auto Neut % 62 % Normal 44-88 [facility] Comment on above: Performed By: #### 7 [id number], [id number] ####[facility] (DEFAULT)[address] [place] [address] Baso Abs# 0.0 x10 Normal 0.0-0.2 [facility] Comment on above: Performed By: #### 7 [id number], [id number] ####[facility] (DEFAULT)[address] [place] [address] Eos Abs# 0.6 x10 High 0.0-0.4 [facility] Comment on above: Performed By: #### 7 [id number], [id number] ####[facility] (DEFAULT)[address] [place] [address] Eosinophils/100 leukocytes 6.5 % High 0.9-4.0 [facility] Comment on above: Performed By: #### 7 [id number], [id number] ####[facility] (DEFAULT)[address] [place] [address] Lymphocytes 1.9 x10 Normal 1.3-2.9 [facility] Comment on above: Performed By: #### 7 [id number], [id number] ####[facility] (DEFAULT)[address] [place] [address] Lymphocytes/100 leukocytes 23 % Normal 14-48 [facility] Comment on above: Performed By: #### 7 [id number], [id number] ####[facility] (DEFAULT)[address] [place] [address] [place] Abs# 0.7 x10 Normal 0.0-0.8 [facility] Comment on above: Performed By: #### 7 [id number], [id number] ####[facility] (DEFAULT)[address] [place] [address] Neut Abs# 5.2 x10 Normal 1.5-9.2 [facility] Comment on above: Performed By: #### 7 [id number], [id number] ####[facility] (DEFAULT)[address] [place] [address] CBC w/ Auto Diffon 8 Erythrocyte distribution width Auto Ratio (RBC) 12.7 % Normal 11.5-15.0 [facility] Comment on above: Performed By: #### 7 [id number], [id number] ####[facility] (DEFAULT)[address] [place] [address] Erythrocytes (RBC) 4.37 x10 Normal 3.70-5.30 [facility] Comment on above: Performed By: #### 7 [id number], [id number] ####[facility] (DEFAULT)[address] [place] [address] Hematocrit (HCT) 40.2 % Normal 33.7-40.4 [facility] Comment on above: Performed By: #### 7 [id number], [id number] ####[facility] (DEFAULT)[address] [place] [address] Hemoglobin mass conc (Bld) 13.6 g/dL Normal 11.3-15.9 [facility] Comment on above: Performed By: #### 7 [id number], [id number] ####[facility] (DEFAULT)[address] [place] [address] Man Diff? Auto Normal [facility] Comment on above: Performed By: #### 7 [id number], [id number] ####[facility] (DEFAULT)[address] [place] [address]144 MCH 31 pg Normal 24-34 [facility] Comment on above: Performed By: #### 7 [id number], [id number] ####[facility] (DEFAULT)[address] [place] [address] 70621 MCHC mass conc (RBC) 34 g/dL Normal 26-37 [facility] Comment on above: Performed By: #### 7 [id number], [id number] ####[facility] (DEFAULT)[address] [place] [address] MCV 92 fL Normal 81-100 [facility] Comment on above: Performed By: #### 7 [id number], [id number] ####[facility] (DEFAULT)[address] [place] [address] 18034 Platelet mean volume (PMV) 9.0 fL Normal 6.3-10.2 [facility] Comment on above: Performed By: #### 7 [id number], [id number] ####[facility] (DEFAULT)[address] [place] [address] 43968 Platelets 350 x10 Normal 138-427 [facility] Comment on above: Performed By: #### 7 [id number], [id number] ####[facility] (DEFAULT)[address] [place] [address]22 WBC (Leukocytes) 8.4 x10 Invalid Interpretation Code [facility] Comment on above: Performed By: #### 7 [id number], [id number] ####[facility] (DEFAULT)[address] [place] [address] Vital Signs Date Time Vital Sign Value Performing Clinician Wilber jensen 06-02-2024 15:15-0500 Body mass index (BMI) [Ratio] 21.91 kg/m2 Julisa RIVERO Work Phone: [facility] 06-02-2024 15:15-0500 Body weight 54.34 kg Julisa RIVERO Work Phone: [facility] 03-05-2025 15:15-0500 Diastolic blood pressure 72 mm[Hg] Julisa RIVERO Work Phone: [facility] 06-02-2024 15:15-0500 Systolic blood pressure 128 mm[Hg] Julisa RIVERO Work Phone: [facility] Encounters Encounter Date Encounter Type Care Provider Facility Start: 06-21-2024 End: 06-21-2024 ambulatory DONNY ALLENO Not Available Start: 06-02-2024 End: 06-02-2024 Patient encounter procedure Julisa RIVERO Work Phone: [facility] Work Phone: Start: 06-02-2024 End: 06-02-2024 Periodic preventive med est patient 40-64yrs Julisa RIVERO Work Phone: [facility] Comment on above: Well woman exam with routine gynecological exam; Breast cancer screening by mammogram; Labial cyst Start: 06-02-2024 End: 06-02-2024 ambulatory JULISA BAI Not Available Start: 06-02-2024 End: 06-02-2024 Bamboo flowsheet Julisa RIVERO Work Phone: [facility] Start: 06-02-2024 End: 06-07-2024 Bamboo flowsheet Julisa RIVERO Work Phone: [facility] Start: 06-02-2024 End: 06-07-2024 Clinisync Result Encounter Julisa RIVERO Work Phone: [facility] External Department Unsolicited Start: 10-18-2023 End: 10-18-2023 Emergency department patient visit [facility] Start: 09-01-2023 End: 09-01-2023 ambulatory DONNY PEARL Not Available Start: 11-28-2021 End: 11-28-[address] VELASQUEZ HUMPHRIES Facility: Start: 11-28-2021 End: 11-28-2021 Departed Referred DO Ruthie Garsia Work Phone: [facility] [place] Start: 08-29-2021 End: 08-29-[address] VELASQUEZ HUMPHRIES Facility: Start: 08-21-2021 End: 08-22-[address] VELASQUEZ HUMPHRIES Facility: Start: 07-15-2017 End: 07-17-2017 [facility] Start: 07-02-2017 End: 07-02-2017 Ambulatory [facility] Facility:[facility] Procedures Date Procedure Procedure Detail Performing Clinician Start: 06-02-2024 IGP,APTIMA HPV,AGE GDLN Julisa RIVERO Work Phone: Start: 10-15-2022 H/O: hysterectomy Status post hysterectomy Julisa RIVERO Work Phone: Plan of Treatment Date Care Activity Detail Author Start: 06-21-2024 End: 06-21-2024 Patient encounter procedure 06/21/2024 11:20 AM EDT Consult [facility] [address] [id number] Donny Pearl DO [address] [place] [address] [facility] Start: 06-02-2024 End: 06-02-2024 Patient encounter procedure 06/02/2024 3:00 PM EST Office Visit [facility] [address] [id number] Julisa Bai PA [address] [place] [address] Arrived [facility] Comment on above: Arrived Start: 06-02-2024 End: 08-02-2025 MG Breast - bilateral Screening Bilateral screening mammogram Imaging Routine Breast cancer screening by mammogram Expected: 06/02/2024 (Approximate), Expires: 08/02/2025 [facility] Work Phone: Comment on above: Expected: 06/02/2024 (Approximate), Expires: 08/02/2025 THIN PREP TIS PAP AN D HR HPV DNA THIN PREP TIS PAP AND HR HPV DNA Pathology and Cytology Routine Well woman exam with routine gynecological exam Ordered: 06/02/2024 [facility] Comment on above: Ordered: 06/02/2024 Payers Date Payer Category Payer Self-pay [id number] 2021 Unknown [id number] 2020 Medicaid (Managed Care) [employer] [id number] 1980 Unknown [id number] 1980 Unknown [id number] 593 1980 Unknown [id number] 593 1980 Unknown [id number] 1286 1980 Unknown [id number] [id number]. 1259 1980 Unknown [id number] [id number]. 1259 1980 Unknown [id number] 1259 1960 Medicaid [id number] Unknown [id number] 531 Social History Date Type Detail Facility Tobacco smoking stat [facility] Unknown if ever smoked [facility] Work Phone: Start: 1980 Sex Assigned At Female F [facility] Start: 10-02-2022 [facility] History of tobacco use Cigarette Smoker [facility] Start: 09-01-2023 End: 06-02-2024 Alcoholic beverage intake Current drinker of alcohol (finding) [facility] Start: 09-01-2023 History of Social function [facility] Start: 09-01-2023 Tobacco use panel [facility] Start: 10-02-2022 Alcohol Comment occasional alcohol u se [facility] Start: 1980 Sex assigned at Not on file N [facility] History of Present illness Narrative 06-02-2024 JOSEFA Corbin - 06/02/2024 3:00 PM EST Note Date & Type Note Facility 06-02-2024 History of Presen t illness Narrative Images from the original note were not included. Reason for Appointment: Patient ID: Kole Aiken is a 43 y.o. female who presents for Well Women Visit Patient presents today for Annual Exam. MEDICATIONS No current outpatient medications ALLERGIES No Known Allergies PROBLEMS Active Ambulatory Problems Diagnosis Date Noted Abscess of labia 10/15/2022 Status post hysterectomy 10/15/2022 Resolved Ambulatory Problems Diagnosis Date Noted No Resolved Ambulatory Problems Past Medical History: Diagnosis Date BMI 22.0-22.9, adult H/O vaginal hysterectomy History of right breast biopsy 08/29/2021 Postop check HISTORY PAST MEDICAL HISTORY SOCIAL HISTORY Past Medical History: Diagnosis Date Abscess of labia BMI 22.0-22.9, adult H/O vaginal hysterectomy History of right breast biopsy 08/29/2021 Postop check Social History Tobacco Use Smoking status: Every Day Current packs/day: 0.50 Types: Cigarettes Smokeless tobacco: Not on file Substance Use Topics Alcohol use: Yes Comment: occasional alcohol use Drug use: Never FAMILY HISTORY Family History Problem Relation Name Age of Onset Cancer Maternal Grandfather Diabetes Paternal Grandfather SURGICAL HISTORY Past Surgical History: Procedure Laterality Date BREAST SURGERY 2016 CT GUIDED TRANSVAGINAL TRANSRECTAL FLUID DRAIN 01/10/2023 CT GUIDED TRANSVAGINAL TRANSRECTAL FLUID DRAIN 01/10/2023 DILATION AND CURETTAGE multiple HYSTERECTOMY INCISION AND DRAINAGE 10/2021 incision and drainage abscess-labia OTHER SURGICAL HISTORY 1998 laser surgery OVARIAN CYST REMOVAL 2018 PAP SMEAR 2019 TUBAL LIGATION 2005 REVIEW OF SYSTEMS Review of Systems: Review of Systems Constitutional: Negative. HENT: Negative. Eyes: Negative. Respiratory: Negative. Cardiovascular: Negative. Gastrointestinal: Negative. Genitourinary: Negative. Musculoskeletal: Negative. Skin: Negative. Neurological: Negative. All other systems reviewed and are negative. Hematological: Negative. Endocrine: Negative. Allergic/Immunologic: Negative. OBJECTIVE Objective: Physical Exam Constitutional: Appearance: Normal appearance. She is well-developed. Genitourinary: Vulva normal. Genitourinary Comments: Chronic cyst which occasionally fills and drains, nothing noted today Left Labia: tenderness. Right Adnexa: not tender and no mass present. Left Adnexa: not tender and no mass present. No cervical discharge. Breasts: Breasts are soft. Right: Normal. Left: Normal. HENT: Head: Normocephalic. Nose: Nose normal. Mouth/Throat: Mouth: Mucous membranes are moist. Cardiovascular: Rate and Rhythm: Normal rate and regular rhythm. Pulmonary: Effort: Pulmonary effort is normal. Breath sounds: Normal breath sounds. Abdominal: General: Bowel sounds are normal. There is no distension. Palpations: Abdomen is soft. Tenderness: There is no abdominal tenderness. There is no guarding or rebound. Musculoskeletal: General: No swelling. Normal range of motion. Cervical back: Normal range of motion. Right lower leg: No edema. Left lower leg: No edema. Neurological: General: No focal deficit present. Mental Status: She is alert and oriented to person, place, and time. Skin: General: Skin is warm and dry. Psychiatric: Mood and Affect: Mood normal. Behavior: Behavior normal. Vitals and nursing note reviewed. Exam conducted with a pest control operator present. Vitals: Estimated body mass index is 21.91 kg/m as calculated from the following: Height as of 10/17/22: 5' 2 . Weight as of this encounter: 119 lb 12.8 oz. BP: 128/72 No LMP recorded. Patient has had a hysterectomy. ASSESSMENT & PLAN ICD-10-CM 1. Well woman exam with routine gynecological exam Z01.419 THIN PREP TIS PAP AND HR HPV DNA 2. Breast cancer screening by mammogram Z12.31 Bilateral screening mammogram Bilateral screening mammogram Annual Exam: Patient presents today for an annual exam. Patient states she is doing well. Pap was obtained without difficulty. Patient has history of surgical excision from labial abscess. She states she has an area in the left upper labiel region that occasionally fills and drains, today no swelling or drainage noted. She states in summer causes a lot of discomfort with swimming and other activities. She would like to have surgically removed. We will have patient scheduled for possible excision Orders Placed This Encounter Procedures Bilateral screening mammogram Follow Up: Patient is to return in one year for annual unless needed otherwise. Documented by Tamera López LPN on behalf of: JOSEFA Corbin documented in this encounter [facility] Evaluation note Note Date & Type Note Facility Evaluation note No assessment information [facility] Work Phone: Evaluation note Note Date & Type Note Facility Evaluation note Diagnosis Well woman exam with routine gynecological exam Routine gynecological examination Breast cancer screening by mammogram Labial cyst Other specified noninflammatory disorder of vulva and perineum documented in this encounter [facility] Summary Purpose Family History No Family History Records FoundNo Family History Records FoundNo Family History Records FoundNo Family History Records FoundNo Family History Records Found Advance Directives No Advanced Directives Records Found Advance Directive Response Recorded Date/ Time Advance Directives No August 17 0 3:34pm Chief Complaint and Reason for Visit Chief Complaint Vulvular Abscess Additional Source Comments INFORMATION SOURCE (unrecogn ized section and content) DATE CREATED AUTHOR 09/16/2017 [facility] DATE CREATED AUTHOR AUTHOR'S ORGANIZ ATION 12/06/2021 [facility] DATE CREATED AUTHOR AUTHOR'S ORGANIZ ATION 12/28/2021 [facility] DATE CREATED AUTHOR AUTHOR'S ORGANIZ ATION 10/21/[address] [facility] DATE CREATED AUTHOR AUTHOR'S ORGANIZ ATION 06/22/2024 [facility] EPIC Care Teams (unrecognized sec tion and content) Team Status: Inactive Member Role Status Dates Ruthie Garsia , DO Primary Care Provider Active Liz Taveras DO Attending Provider Active Team Status: Active Member Role Status Dates Ruthie Ady , Primary Care Provider Active Goals (unrecognized section and content) Goals may be documented in a n alternate section Reason for Visit (unrecogniz ed section and content) Reason Comments Well Women Visit FOR RECORDS PERTAINING TO PATIENTS WHO ARE OR HAVE BEEN ENROLLED IN A CHEMICAL DEPENDENCY/SUBSTANCEABUSE PROGRAM, SOME INFORMATION MAY BE OMITTED. This clinical summary was aggregated from multiple sources. Caution should be exercised in using it in the provision of clinical care. This summary normalizes information from multiple sources, and as a consequence, information in this document may materially change the coding, format and clinical context of patient data. In addition, data may be omitted in some cases. CLINICAL DECISIONS SHOULD BE BASED ON THE PRIMARY CLINICAL RECORDS. [facility] [employer] provides no warranty or guarantee of the accuracy or completeness of information in this document.
[2024-07-16 07:15] LABS: Basophils Absolute Auto 0.1 10^3/uL (0.0-0.1); Basophils Percent Auto 0.7 % (0.2-2.0); Eosinophils Absolute Auto 0.9 10^3/uL (0.0-0.7); Eosinophils Percent Auto 9.6 % (0.9-7.0); Hematocrit 38.8 % (36.0-48.0); Hemoglobin 12.8 g/dL (12.0-16.0); Immature Granulocytes Abs Auto 0.03 10^3/uL (0.00-0.03); Immature Granulocytes Pct Auto 0.3 % (0.0-0.5); Lymphocytes Absolute Auto 3.9 10^3/uL (1.2-3.8); Lymphocytes Percent Auto 41.8 % (20.5-60.0); Mean Corpuscular Hemoglobin 30.8 pg (26.7-34.0); Mean Corpuscular Volume 93.5 fL (81.0-99.0); Mean Platelet Volume 9.2 fL (9.5-13.5); Monocytes Absolute Auto 0.7 10^3/uL (0.3-0.8); Monocytes Percent Auto 7.9 % (1.7-12.0); Neutrophils Absolute Auto 3.7 10^3/uL (1.4-6.5); Neutrophils Percent Auto 39.7 % (43.0-75.0); Platelet Count 371 10^3/uL (150-450); Red Blood Count 4.15 10^6/uL (4.20-5.40); Red Cell Distribution Width 12.6 % (11.0-15.0); White Blood Count 9.4 10^3/uL (4.0-11.0)
[2024-07-16 07:18] VITALS: BP 153/98; PULSE 69; TEMP 36.1; O2SAT 98; BMI 21.8
[2024-07-16] MEDS: LACTATED RINGER'S SOLUTION 1,000 ML 50 ML IV ×2 (07:41→09:30)
[2024-07-16] MEDS: SCOPOLAMINE 1 MG/3 DAYS TRANSDERM PATCH 1 PATCH TD (07:42)
[2024-07-16 09:50] VITALS: BP 130/77; PULSE 73; O2SAT 98
--- NOTE | 2024-07-16 09:54 | PM.ONB ---
Brief Operative Note Date of procedure: 07/16/24 Pre-op diagnosis general: lt labial cyst Post-op diagnosis: same as pre-op Procedure: NAME OF PROCEDURE: [ removal of lt labial cyst] PROCEDURE: The patient was taken back to the Operating Room where she was prepped and draped in normal sterile fashion after being placed under general anesthesia without difficulty. She was also placed in the dorsal lithotomy position. The cyst was identified, incision was made around cyst, the cyst wall was identified along and removed, the base was coagulated using a bovie the skin was closed using 4-0 vicryl. The patient tolerated the procedure well. Sponge, lap and needle counts were correct times two. The patient was taken to the Recovery Room in stable condition.Room in stable condition. Anesthesia: MAC Surgeon: Jorge Luis Pearl Estimated blood loss (mL): 5 Pathology: other (skin lesion) Condition: stable Disposition: PACU Urinary Catheter Management Urinary Catheter Management Straight: Cath placed during this visit: no
[2024-07-16] MEDS: BACITRACIN OINTMENT 28.4 GM TUBE 1 APPLIC TOPICAL (09:57)
[2024-07-16 10:05] VITALS: BP 146/98; PULSE 55; O2SAT 100
[2024-07-16 10:20] VITALS: BP 159/98; PULSE 53; O2SAT 100
== END 2024-07-16 10:30 | disposition home or self-care (01) ==
PROVIDERS: Visit Provider Obstetrics & Gynecology
PROC: (CPT 940; principal; 2024-07-16 08:25)
DX: N90.7 Vulvar cyst (principal); Z90.710 Acquired absence of both cervix and uterus; F17.210 Nicotine dependence, cigarettes, uncomplicated; N94.89 Other specified conditions associated with female genital organs and menstrual cycle; Z98.51 Tubal ligation status
CPT/HCPCS: 11422; 36415; 85025; 88304; J1100; J1885; J2250; J2405; J2704; J3010

== ENCOUNTER 2024-07-19 17:34 | Emergency (ER) | payer OTHER, SELFPAY ==
[2024-07-19 17:38] VITALS: BP 155/103; PULSE 80; O2SAT 98; BMI 22.7
[2024-07-19 17:47] VITALS: TEMP 36.9
--- NOTE | 2024-07-19 17:47 | PC.NURSE ---
left labia swollen, cleansed with saline and gauze. area is bleeding small amount, does not appear infected.
--- NOTE | 2024-07-19 17:57 | ED.GENADUL1 ---
HPI HPI - General Adult General Chief complaint: Skin/Abscess/Foreign Body Stated complaint: Wound Check Time Seen by Provider: 07/19/24 17:40 Source: patient Mode of arrival: Wheelchair History of Present Illness HPI narrative: 43-year-old female presents to the emergency department for pain in her left vulvar area. She had a cyst incised and drained about 3 days ago and her left labia and states it swollen and there is been some bleeding coming from it. No purulent drainage. The pain is moderate to severe and she has been taking ibuprofen Related Data Home Medications ?Medication ?Instructions ?Recorded ?Confirmed cetirizine 10 mg tablet (24Hour 10 mg PO DAILY PRN allergy symptoms 07/16/24 07/16/24 Allergy) Previous Rx's ?Medication ?Instructions ?Recorded cephalexin 500 mg capsule 500 mg PO TID 7 days #21 caps 07/19/24 hydrocodone 5 mg-acetaminophen 325 1 tab PO Q6H PRN pain 5 days #20 07/19/24 mg tablet tabs Allergies Allergy/AdvReac Type Severity Reaction Status Date / Time No Known Drug Allergies Allergy Verified 07/02/24 10:03 Opioid HPI Opioid Management Most Recent Opioid Data: Last Pain Scale 4 10/04/22 15:55 10/04/22 Last Pain Assessment 07/16/24 10:20 Review of Systems ROS Narrative A ten point review of systems is negative except as noted above. PFSH PFSH Medical History (Updated 07/19/24 @ 17:55 by Philippe Zurita MD) Seasonal allergies ?J30.2 - Other seasonal allergic rhinitis (ICD-10) Postoperative nausea and vomiting ?R11.2 - Nausea with vomiting, unspecified (ICD-10) ?Z98.890 - Other specified postprocedural states (ICD-10) Vaginal cyst ?N89.8 - Other specified noninflammatory disorders of vagina (ICD-10) Anemia ?D64.9 - Anemia, unspecified (ICD-10) COVID-19 ?U07.1 - COVID-19 (ICD-10) Kidney stones ?N20.0 - Calculus of kidney (ICD-10) Surgical History History of laparoscopy ?Z98.890 - Other specified postprocedural states (ICD-10) History of tonsillectomy ?Z90.89 - Acquired absence of other organs (ICD-10) H/O LEEP ?Z98.890 - Other specified postprocedural states (ICD-10) History of tubal ligation ?Z98.51 - Tubal ligation status (ICD-10) History of breast biopsy ?Z98.890 - Other specified postprocedural states (ICD-10) History of dilation and curettage ?Z98.890 - Other specified postprocedural states (ICD-10) History of hysterectomy ?Z90.710 - Acquired absence of both cervix and uterus (ICD-10) Family History (Updated 07/02/24 @ 10:05 by Rohini Rahman) Other Family history of coronary artery disease Family history of diabetes mellitus Family history of heart disease Family history of hypertension Social History (Updated 07/16/24 @ 07:27 by Mary Huitron RN) Within the past year, how often did you have a drink containing alcohol: 2-3 times a week Smoking status: Current every day smoker What tobacco products do you use: cigarettes Cigarettes per day: 5 Years smoked: 20 Smoking pack-years: 5.00 Non-prescribed substance use: denies use 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 General: The patient appears well and in no apparent distress. Patient is resting comfortably on cart. Skin: Warm, dry, no pallor noted. There is no rash noted. Head: Normocephalic, atraumatic Eye: Normal conjunctiva, no drainage Ears, Nose, Mouth, and Throat: oral mucosa is moist. Nares patent. Cardiovascular: Regular Rate and Rhythm Respiratory: Patient is in no distress, no accessory muscle use, lungs are clear to auscultation, no wheezing, rales or rhonchi Back: non-tender, no CVA tenderness bilaterally to percussion. GI: Soft and nontender : She has some swelling in the left labia minora area. The sutures are intact. There is minimal bleeding coming from the surgical wound. No surrounding erythema or purulent drainage. Musculoskeletal: The patient has no evidence of calf tenderness, no pitting edema, symmetrical pulses noted bilaterally Neurological: A&O, normal speech Psychiatric: Cooperative Constitutional Vital Signs, click to edit/add: Last Vital Signs Temp 98.5 F 07/19/24 17:47 Pulse 80 07/19/24 17:38 Resp 20 07/19/24 17:38 BP 155/103 H 07/19/24 17:38 Pulse Ox 98 07/19/24 17:38 O2 Del Method Room Air 07/19/24 17:38 Course Vital Signs Vital signs: Vital Signs Pulse Rate 80 07/19/24 17:38 Respiratory Rate 20 07/19/24 17:38 Blood Pressure 155/103 H 07/19/24 17:38 Pulse Oximetry 98 07/19/24 17:38 Oxygen Delivery Method Room Air 07/19/24 17:38 Temperature 98.5 F 07/19/24 17:47 Pulse Rate 80 07/19/24 17:38 Respiratory Rate 20 07/19/24 17:38 Blood Pressure 155/103 H 07/19/24 17:38 Pulse Oximetry 98 07/19/24 17:38 Oxygen Delivery Method Room Air 07/19/24 17:38 Medical Decision Making MDM Narrative Medical decision making narrative: Case discussed with Dr. Pearl. She is prescribed Fischer and Keflex and will be seen tomorrow in the office. Treatment diagnosis and follow-up were discussed with the patient. Differential Diagnosis Differential Diagnosis: Dehiscence, cellulitis, abscess, postop pain Discharge Plan Discharge Chief Complaint: Skin/Abscess/Foreign Body Clinical Impression: Post-operative pain Patient Disposition: Home, Self-Care Time of Disposition Decision: 17:55 Condition: Good Mode of Transportation: Private Vehicle Prescriptions / Home Meds: New cephalexin 500 mg capsule 500 mg PO TID 7 Days Qty: 21 0RF hydrocodone-acetaminophen 5-325 mg tablet 1 tab PO Q6H PRN (Reason: pain) 5 Days Qty: 20 0RF No Action cetirizine [24Hour Allergy] 10 mg tablet 10 mg PO DAILY PRN (Reason: allergy symptoms) Print Language: Guinean Instructions: Narcotic Safety (ED), Pain Management After Surgery (DC) Referrals: Physician,Non-Staff, MD [Primary Care Provider] - 1 week
--- OUTSIDE RECORDS SUMMARY | 2024-07-19 18:10 | XMS_ITS | CCD ---
Author Organization [facility] CliniSyal Care Team Providers Care Chemistry Instructor Name Role Phone KWAN, JASVIR Unavailable Unavailable KWAN, JASVIR Unavailable Unavailable Gorty, Eduardo S Unavailable Unavailable Provider, None Unavailable Unavailable KWAN, JASVIR Unavailable Unavailable KWAN, JASVIR Unavailable Unavailable Provider, Unlisted Unavailable Unavailable DO Ruthie Garsia Primary Care Provider DO Liz Taveras Attending Provider ARTIS, DR ENG Consulting Unavailable KARASIK, DR EGN Attending Unavailable [facility] Primary Care Unavailable KARASIK, DR ENG Admitting Unavailable AGUBOSIM, BEATRIS Consulting Unavailable LIZ TAVERAS Consulting Unavailable KARASIK, DR ENG Consulting Unavailable KARASIK, DR ENG Attending Unavailable [facility] Primary Care Unavailable KARASIK, DR ENG Admitting Unavailable ZIEBER, DR HERNAN Rojas Consulting Unavailable KARASIK, DR ENG Admitting Unavailable KARASIK, DR ENG Consulting Unavailable [facility] Primary Care Unavailable KARASIK, DR ENG Attending Unavailable ZIEBER, DR HERNAN Rojas Consulting Unavailable [facility] Primary Care Unava ilable Unavailable Primary Care Provider UnavailJULISA Golden Attending Unavailable DONNY PEARL Attending Unavailable DONNY PEARL Attending Unavailable Ruthie Garsia Primary Care Unavailable RyanneDonny nicholas Attending Unavailable RyanneJennifer nicholasy Admitting Unavailable Allergies Allergy Classification Reported Allergen(s) Allergy Type Date of Onset Reaction(s) Facility (1 source) No Known Medication Allergies; Translations: [No Known Medication Allergies] Propensity to adverse reactions to drug (disorder) [facility] Repository Problems Active Problems Problem Classification Problem [...] sources) Abscess of vulva; Translations: [Abscess of labia] Onset: 12-05-2021 10-15-2022 Episodic Nonmalignant breast conditions (7 sources) Unspecified lump in the right breast, upper outer quadrant; Translations: [Unspecified lump in unspecified breast] Onset: 08-21-2021 Episodic Results Test Name Value Interpretation Reference Range Facility ALL CBC WITH AUTO DIFFon BASOPHILS ABSOLUTE AUTO 0.1 [facility] Basophils/100 WBC (Bld) 0.7 % 0.2 - 2.0 % [facility] Eosinophils/100 WBC (Bld) 9.6 % High 0.9 - 7.0 % [facility] Erythrocyte distribution width (RBC) [Ratio] 12.6 % 11.0 - 15.0 % [facility] Hematocrit (Bld) [Volume fraction] 38.8 % 36.0 - 48.0 % [facility] Hemoglobin (Bld) [Mass/Vol] 12.8 g/dL 12.0 - 16.0 g/dL [facility] IMMATURE GRANULOCYTES ABS AUTO 0.03 [facility] Immature granulocytes/100 WBC (Bld) 0.3 % 0.0 - 0.5 % [facility] Interpretation and review of laboratory results Abnormal [facility] LYMPHOCYTES ABSOLUTE AUTO 3.9 High [facility] Lymphocytes/100 WBC (Bld) 41.8 % 20.5 - 60.0 % [facility] MCH (RBC) [Entitic mass] 30.8 pg 26.7 - 34.0 pg [facility] MCHC (RBC) [Mass/Vol] 33 g/dL 29.9 - 35.2 g/dL [facility] MCV (RBC) [Entitic vol] 93.5 fL 81.0 - 99.0 fL [facility] MONOCYTES ABSOLUTE AUTO 0.7 [facility] Monocytes/100 WBC (Bld) 7.9 % 1.7 - 12.0 % [facility] NEUTROPHILS ABSOLUTE AUTO 3.7 [facility] Neutrophils/100 WBC (Bld) 39.7 % Low 43.0 - 75.0 % [facility] Platelet mean volume (Bld) [Entitic vol] 9.2 fL Low 9.5 - 13.5 fL [facility] TBH EO # 0.9 High [facility] TB PLT [address] [facility] RBC 4.15 Low [facility] WBC 9.4 [facility] IGP,APTIMA HPV,AGE GDLNon AGE GDLN ACOG TESTING Note . [facility] Comment on above: TESTS RESULT FLAG UN ITS REF RANGE LAB Clinician Provided Cytology Information Source.............Vagina No. of containers..01 ThinPrep Vial Age Algo ACOG Ellie... 30-65 01 FLAG LEGEND: L-Low Normal,H-High Normal,LL-Alert Low,HH-Alert High <-Panic Low,>-Panic High,A-Abnormal,AA-Critical Abnormal Performed at: 01 =[address] [address] Steff Pineda MD, HPV APTIMA Negative Negative [facility] Comment on above: This nucleic acid am plification test detects fourteen high- risk HPV types (16,18,31,33,35,39,45,51,52,56,58,59,66,68) without differentiation. Performed at: =[address] [id number] Grain Elevator Man: Steff Pineda MD, Phone: [phone] Performed at: [address] [id number] [employer] Elevator Man: Steff Pineda MD, Phone: [phone] IGP, APTIMA HPV, RFX 16/18,45 Note . [facility] Comment on above: TESTS RESULT FLAG UN ITS REF RANGE LAB DIAGNOSIS: 02 NEGATIVE FOR INTRAEPITHELIAL LESION OR MALIGNANCY. Specimen adequacy: 02 Satisfactory for evaluation. No endocervical component is identified. Performed by: 02 Rachel Bird, Automation Tender . 02 Note: Note 02 The Pap [...] Low,>-Panic High,A-Abnormal,AA-Critical Abnormal Performed at: 02 [address] [facility] [address] [address] Steff Pineda MD, SPATULA-ALONE VAGINA [facility] WOUND CULTUREon 12-04-2021 Bacteria identified Aer cx Nom (Unsp spec) Final report Normal [facility] Comment on above: Performed By: #### C XWND #### [facility] [address] [place] [address] Dr. Yaritza Olson Result 1 Mixed skin aury Normal [facility] Comment on above: Performed By: #### C XWND #### [facility] [address] [place] [address] Dr. Yaritza Olson CBC AUTO DIFFon 11-28-2021 BASO # 0.1 103/ul Normal 0.0-0.1 [facility] Comment on above: Performed By: #### P SKYE ERUR #### [facility] [address] [place] [address] Dr. Yaritza Olson Basophils/100 WBC (Bld) 0.5 % Normal 0.2-2.0 [facility] Comment on above: Performed By: #### Ean CHEUNG ERUR #### [facility] [address] [place] [address] Dr. Yaritza Olson EO # 0.1 103/ul Normal 0.0-0.7 [facility] Comment on above: Performed By: #### Ean CHEUNG ERUR #### [facility] [address] [place] [address] Dr. Yaritza Olson Eosinophils/100 WBC (Bld) 0.9 % Normal 0.9-7.0 [facility] Comment on above: Performed By: #### P REGU, ERUR #### [facility] [address] [place] [address] Dr. Yaritza Olson Erythrocyte distribution width (RBC) [Ratio] 12.4 % Normal 11.0-15.0 [facility] Comment on above: Performed By: #### P REGU, ERUR #### [facility] [address] [place] [address] Dr. Yaritza Olson Hematocrit (Bld) [Volume fraction] 36.0 % Normal 36.0-48.0 [facility] Comment on above: Performed By: #### P REGU, ERUR #### [facility] [address] [place] [address] Dr. Yaritza Olson Hemoglobin (Bld) [Mass/Vol] 12.0 g/dL Normal 12.0-16.0 [facility] Comment on above: Performed By: #### P REGU, ERUR #### [facility] [address] [place] [address] Dr. Yaritza Olson IG # 0.05 10e3/ul Critically high 0.00-0.[address] [facility] Comment on above: Performed By: #### P REGU, ERUR #### [facility] [address] [place] [address] Dr. Yaritza Olson IG % 0.4 % Normal 0.0-0.5 [facility] Comment on above: Performed By: #### P REGU, ERUR #### [facility] [address] [place] [address] Dr. Yaritza Olson LYMPH # 1.1 103/ul Critically low 1.2-3.8 [facility] Comment on above: Performed By: #### P REGU, ERUR #### [facility] [address] [place] [address] Dr. Yaritza Olson Lymphocytes/100 WBC (Bld) 8.6 % Critically low 20.5-60.0 [facility] Comment on above: Performed By: #### P REGU, ERUR #### [facility] [address] [place] [address] Dr. Yaritza Olson MANUAL DIFF REQ NO Normal [facility] Comment on above: Performed By: #### P REGU, ERUR #### [facility] [address] [place] [address] Dr. Yaritza Olson MCH (RBC) [Entitic mass] 30.4 pg Normal 26.7-34.0 [facility] Comment on above: Performed By: #### P REGU, ERUR #### [facility] [address] [place] [address] Dr. Yaritza Olson MCHC (RBC) [Mass/Vol] 33.3 g/dL Normal 29.9-35.2 [facility] Comment on above: Performed By: #### P REGU, ERUR #### [facility] [address] [place] [address] Dr. Yaritza Olson MCV (RBC) [Entitic vol] 91.1 fL Normal 81.0-99.0 [facility] Comment on above: Performed By: #### P REGU, ERUR #### [facility] [address] [place] [address] Dr. Yaritza Olson MONO # 0.8 103/ul Normal 0.3-0.8 [facility] Comment on above: Performed By: #### P REGU, ERUR #### [facility] [address] [place] [address] Dr. Yaritza Olson Monocytes/100 WBC (Bld) 6.2 % Normal 1.7-12.0 [facility] Comment on above: Performed By: #### P REGU, ERUR #### [facility] [address] [place] [address] Dr. Yaritza Olson NEUT # 11.1 103/ul Critically high 1.4-6.5 [facility] Comment on above: Performed By: #### P REGU, ERUR #### [facility] [address] [place] [address] Dr. Yairtza Olson Neutrophils/100 WBC (Bld) 83.4 % Critically high 43.0-75.0 [facility] Comment on above: Performed By: #### P REGU, ERUR #### [facility] [address] [address] [address] Yaritza Olson Platelet mean volume (Bld) [Entitic vol] 9.5 fL Normal 9.5-13.5 [facility] Comment on above: Performed By: #### P REGU, ERUR #### [facility] [address] [address] [address] Yaritza Olson PLT 298 103/ul Normal 150-450 [facility] Comment on above: Performed By: #### P REGU, ERUR #### [facility] [address] [address] [address] Yaritza Olson RBC 3.95 106/ul Critically low 4.20-5.40 [facility] Comment on above: Performed By: #### P REGU, ERUR #### [facility] [address] [address] [address] Yaritza Olson WBC 13.3 103/ul Critically high 4.0-11.0 [facility] Comment on above: Performed By: #### P REGU, ERUR #### [facility] [address] [address] [address] Yaritza Olson Covid-19 PCR (CVDTB)on 10-31 SARS-CoV-2 (COVID-19) RNA CHARLY+probe Ql (Unsp spec) Not detected Normal NOT DETECTED [facility] Comment on above: Result Comment: When diagnostic [...] for this test is supported by the [place] of Health and Human Service's declaration that [...] longer be used). Performed By: #### C VDTB #### [facility] [address] [place] [address] Dr. Yaritza Olson ER URINE PROFILEon 2 Bilirubin Ql (U) Negative Normal NEGATIVE [facility] Comment on above: Performed By: #### P REGU, ERUR #### [facility] [address] [place] [address] Dr. Yaritza Olson Clarity (U) CLEAR Normal CLEAR [facility] Comment on above: Performed By: #### P REGU, ERUR #### [facility] [address] [place] [address] Dr. Yaritza Olson Color (U) YELLOW Normal YELLOW [facility] Comment on above: Performed By: #### P REGU, ERUR #### [facility] [address] [place] [address] Dr. Yaritza Olson ERUMARY JOD A micrscopic examina tion will be performed if indicated. Normal [facility] Comment on above: Performed By: #### P REGU, ERUR #### [facility] [address] [place] [address] Dr. Yaritza Olson Glucose Ql (U) Negative Normal NEGATIVE [facility] Comment on above: Performed By: #### P REGU, ERUR #### [facility] [address] [place] [address] Dr. Yaritza Olson Hemoglobin Ql (U) Negative Normal NEGATIVE [facility] Comment on above: Performed By: #### P REGU, ERUR #### [facility] [address] [place] [address] Dr. Yaritza Olson Ketones Ql (U) TRACE Abnormal NEGATIVE [facility] Comment on above: Performed By: #### P REGU, ERUR #### [facility] [address] [place] [address] Dr. Yaritza Olson LEUKOCYTES Negative Normal NEGATIVE [facility] Comment on above: Performed By: #### P REGU, ERUR #### [facility] [address] [place] [address] Dr. Yaritza Olson Nitrite Ql (U) Negative Normal NEGATIVE [facility] Comment on above: Performed By: #### P REGU, ERUR #### [facility] [address] [place] [address] Dr. Yaritza Olson pH (U) 6.0 [pH] Normal 5-9 [facility] Comment on above: Performed By: #### P REGU, ERUR #### [facility] [address] [place] [address] Dr. Yaritza Olson SPEC GRAVITY 1.025 Normal 1.005-<=1.0 25 [facility] Comment on above: Performed By: #### P REGU, ERUR #### [facility] [address] [place] [address] Dr. Yaritza Olson UA PROTEIN TRACE Normal NEGATIVE/ TRACE [facility] Comment on above: Performed By: #### P REGU, ERUR #### [facility] [address] [place] [address] Dr. Yaritza Olson UR MICRO IND NOT INDICATED Normal [facility] Comment on above: Performed By: #### P REGU, ERUR #### [facility] [address] [place] [address] Dr. Yaritza Olson Urobilinogen Qn (U) 0.2 {Get'U}/dL Normal 0.2 - 1. 0 [facility] Comment on above: Performed By: #### P REGU, ERUR #### [facility] [address] [place] [address] Dr. Yaritza Olson PREG HCG QUALon 11-28-2021 , QUAL Negative Normal NEGATIVE [facility] Comment on above: Performed By: #### P REG #### [facility] [address] [place] [address] Dr. Yaritza Olson PREG QUANT HCGon 11-28-2021 HCG QUANT <1 Normal [facility] Comment on above: Performed By: #### P REGQNT #### [facility] [address] [place] [address] Dr. Yaritza Olson HCG RANGE SEE BELOW Normal [facility] Comment on above: Result Comment: 5-50 0.2-1 WEEK 50-500 1-2 WEEKS 100-5,000 2-3 WEEKS 500-10,000 3-4 WEEKS 1,000-50,000 4-5 WEEKS 10,000-100,000 5-6 WEEKS 15,000-200,000 6-8 WEEKS 10,000-100,000 2-3 MONTHS Performed By: #### P REGQNT #### [facility] [address] [place] [address] Dr. Yaritza Olson Result Comment: TEST PERFORMED AT: [facility] [address] [place] [address] URon 11-28-2021 , QUAL Negative Normal NEGATIVE [facility] Comment on above: Performed By: #### P REGU, ERUR #### [facility] [address] [place] [address] Dr. Yaritza Olson PROF CHEM 8 (BAS METB)on Anion gap [Moles/Vol] 14.2 mmol/L Normal [facility] Comment on above: Performed By: #### P REGU, ERUR #### [facility] [address] [place] [address] Dr. Yaritza Olson Calcium [Mass/Vol] 8.8 mg/dL Normal 8.5-10.1 [facility] Comment on above: Performed By: #### P REGU, ERUR #### [facility] [address] [address] [address] Yaritza Olson Chloride [Moles/Vol] 103 mmol/L Normal 98-107 [facility] Comment on above: Performed By: #### P REGU, ERUR #### [facility] [address] [place] [address] Dr. Yaritza Olson CO2 [Moles/Vol] 23.4 mmol/L Normal 21.0-32.0 [facility] Comment on above: Performed By: #### P REGU, ERUR #### [facility] [address] [address] [address] Yaritza Olson Creatinine [Mass/Vol] 0.76 mg/dL Normal 0.55-1.02 [facility] Comment on above: Performed By: #### P REGU, ERUR #### [facility] [address] [address] [address] Yaritza Olson EGFR-AF ENGLISH >60 Normal >=60 [facility] Comment on above: Performed By: #### P REGU, ERUR #### [facility] [address] [address] [address] Yaritza Olson EGFR-NON AF ENGLISH >60 Normal >=60 [facility] Comment on above: Performed By: #### P REGU, ERUR #### [facility] [address] [address] [address] Yaritza Olson Glucose [Mass/Vol] 98 mg/dL Normal 74-106 [facility] Comment on above: Performed By: #### P REGU, ERUR #### [facility] [address] [address] [address] Yaritza Olson Potassium [Moles/Vol] 3.6 mmol/L Normal 3.5-5.1 [facility] Comment on above: Performed By: #### P REGU, ERUR #### [facility] [address] [address] [address] Yaritza Olson Sodium [Moles/Vol] 137 mmol/L Normal 136-145 [facility] Comment on above: Performed By: #### P REGU, ERUR #### [facility] [address] [address] [address] Yaritza Olson Urea nitrogen [Mass/Vol] 8.0 mg/dL Normal 7.0-18.0 [facility] Comment on above: Performed By: #### P REGU, ERUR #### [facility] [address] [address] [address] Yaritza Olson Urea nitrogen/Creatinine [Mass ratio] 10.5 mg/mg Normal [facility] Comment on above: Performed By: #### P REGU, ERUR #### [facility] [address] [place], [place] [address] Dr. Yaritza Olson Serum or plasma beta choriog onadotropin measurement (units/volume)Ordered By: Liz Taveras on 11-28-2021 HCG.beta subunit Qn m[IU]/mL [facility] Comment on above: Approximate Approxim ate hCG Gestational Age Range (mIU/ml) (weeks) 0.2-1 5-50 1-2 50-500 2-3 100-5,000 3-4 500-10,000 4-5 1,000-50,000 5-6 10,000-100,000 6-8 15,000-200,000 8-12 10,000-100,000 US VAC ASST BX BRST RT W CLI Gage 09-10-2021 US VAC ASST BX BRST RT W CLIP Begin Addendum #1 COLLECTED DATE/TIME: 08/29/2021 10:48 EDT Final Diagnosis Report for [facility] [place], [place] RIGHT BREAST MASS AT 10 O'CLOCK, [...] after pathology results are available. Normal [facility] MAMMO POST BIOPSY RIGHTon MAMMO POST BIOPSY RIGHT Patient: KOLE AIKEN. Exam Date: 08/29/2021 : 1980 Gender:F Ordering : DR VELASQUEZ HUMPHRIES . Admission #: [id number] Family : Order #: [id number] CLICK HERE TO VIEW EXAM RADIOLOGY REPORT [...] M.D. on 08/29/2021 at 11:38 Normal [facility] MG MAMM DIAGNOSTIC 3D SUBHASH CA Don 08-21-2021 MG MAMM DIAGNOSTIC 3D SUBHASH CAD Patient: KOLE AIKEN. Exam Date: 08/21/2021 : 1980 Gender:F Ordering : DR VELASQUEZ HUMPHRIES . Admission #: [id number] Family : Order #: [id number] CLICK HERE TO VIEW EXAM RADIOLOGY REPORT [...] Treatments None Family Cancers None LOCATION: [facility] BREAST COMPOSITION: Extremely dense, which lowers the [...] Zhong M.D. on 08/21/2021 at 11:10 Normal [facility] US BREAST RIGHT LIMITEDon US BREAST RIGHT LIMITED Patient: KOLE AIKEN Exam Date: 08/21/2021 : 1980 Gender:F Ordering : DR VELASQUEZ HUMPHRIES . Admission #: [id number] Family : Order #: [id number] CLICK HERE TO VIEW EXAM RADIOLOGY REPORT [...] Treatments None Family Cancers None LOCATION: [facility] BREAST COMPOSITION: Extremely dense, which lowers the [...] Zhong M.D. on 08/21/2021 at 11:10 Normal [facility] Intraoperative Noteon 2017 Intraoperative Note [id number][facility] and Physicalon 08-20 History and Physical [id number]#1.[facility] Operative Report - Surgeon/P hysicilety 08-20-2017 Operative Report - Surgeon/Physician [id number]#1.00[facility] Provider Orderson 08-20-2017 Provider Orders [id number]#1.00[facility] Provider Orderson 08-15-2017 Provider Orders [id number]#1.00[facility] MAGR Intraoperative Recordon 07-23-2017 MAGR Intraoperative Record MAGR Intra-Op Record Summary Primary Physician: Jasvir Clark DO Finalized Date/Time: 07/23/17 17:05:06 Pt. Name: KOLE AIKEN/Sex: 1980 FEMALE Med Rec #: [id number] Physician: Jasvir Clark DO Financial #: [id number] Pt. Type: D Room/Bed: / Admit/Disch: 07/15/17 [...] Role Performed Surgeon - Primary Anesthesiologist of Imaging Engineer Record Time In 07/15/17 08:02:00 07/15/17 08:02:00 07/15/17 08:02:00 Time Out 07/15/17 09:41:00 07/15/17 09:41:00 07/15/17 09:41:00 Procedure Laparoscopy Diagnostic Laparoscopy Diagnostic Laparoscopy Diagnostic Last Modified By: Sarah Beth Restrepo Cynthia M Cartier, Cynthia M 07/15/17 12:11:56 07/15/17 12:21:02 07/15/17 12:11:56 Entry 4 Entry 5 Entry 6 Case Attendee Michelle Stark RN BOARD CS[employer], Renee Ramey Role Performed Imaging Engineer Fire Systems Inspector Scrub Personnel Time In 07/15/17 08:02:00 07/15/17 08:02:00 07/15/17 08:02:00 Time Out 07/15/17 09:41:00 07/15/17 09:41:00 07/15/17 09:41:00 Procedure Laparoscopy Diagnostic Laparoscopy Diagnostic Laparoscopy Diagnostic Last Modified By: Sarah Beth Restrepo Cynthia M Cartier, Cynthia M 07/15/17 12:11:56 07/15/17 12:11:56 07/15/17 12:11:56 Entry 7 Case Attendee Theresa Payan [employer] Role Performed Scrub Personnel Time In 07/15/17 [...] 17:04 MHLASCHMIDT Correct Documentation change specialty service [facility] Coding Summaryon 07-21-2017 Coding Summary CODING DATE: 018 [facility] STATUS: Home PAYOR: Medicaid HMO ADMIT DX: REASON FOR VISIT DX: R10.2 Pelvic and perineal pain N83.209 Unspecified ovarian cyst, unspecified side FINAL DX: PRINCIPAL: R10.2 Pelvic and perineal pain SECONDARY: N83.202 Unspecified ovarian cyst, left side 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) F17.210 Nicotine dependence, cigarettes, uncomplicated PROCEDURES DOCTOR NAME DATE 83252 Laparoscopy, surgical; with Jasvir Clark DO 07/15/2017 [...] Marysol Oliver Date Saved: 07/21/2017 07:04 am [facility] Consent Formson 07-16-2017 Consent Forms [id number]#1.00[facility] Intraoperative Noteon 2017 Intraoperative Note [id number]#1.00[facility] Telemetry Stripson 8 Telemetry Strips [id number]#1.00[facility] Anesthesia Noteon 07-15-2017 Anesthesia Note Patient: ELAN [...] on: 07/15/2017 09:42 EDT] Eduardo Bah MD [facility] Anesthesia Note Patient: ELAN AIKEN : 36 years Sex: FEMALE : [birth year]Associated Diagnoses: NoneAuthor: Eduardo Bah MDPreoperative InformationAnesthesia history: Patient history: Nausea and vomiting with anesthesia, No difficult intubation, No malignant hyperthermia. Family history: No malignant hyperthermia.Review of SystemsRespiratory: No shortness of breath, No apnea.Cardiovascular: No known WI, No chest pain.Gastrointestinal: No heartburn.Health StatusAllergies:Allergic Reactions (All)No Known Medication AllergiesCurrent medications:Home Medications (1) Activeibuprofen 600 mg oral tablet 600 mg = 1 tab(s), PO, n5ltVgpiqtr list (past medical history):All ProblemsSmoker / SNOMED CT [id number] / ConfirmedHistoriesFamily History:No family history items have been selected or recorded.Procedure history:Tubal ligation ([id number]).Dilation and curettage ([id number]).Comments:07/02/19 18 14:00 - Meagan Hernandez JEz8Heenmrutqf of breast ([id number]).Comments:2017 14:00 - Meagan Hernandez RNleftTonsillectomy and adenoidectomy ([id number]).Social History Alcohol Assessment Use: Current. Beer, 1-2 times per week Tobacco Assessment 5-9 cigarettes (between 1/4 to 1/2 pack)/day in last 30 days Tobacco Use:..Physical ExaminationVS/Measurements Vital Signs (last 24 hrs) Last ChartedHeart Rate Peripheral L56 bpm (JUL 15 06:12)Resp Rate 16 br/min (JUL 15:)SBP 127 mmHg (JUL 15:15)DBP 81 mmHg (JUL 15:)SpO2 100 % (JUL 15:)Pain assessment: Self-reports no pain.General: Alert and oriented, [...] 07/15/2017 07:32 EDT] Eduardo Bah MD Normal [facility] Inpatient Clinical Summaryon 07-15-2017 Inpatient Clinical Summary [facility] SURGERYClinical Discharge SummaryPERSON INFORMATIONName KOLE AIKEN Age 36 Years 79Sex FEMALE Language Armenian PCP Provider, UnlistedMarital Status Single [facility] Acct# Arrival 07/15/17 05:53:34Visit Reason DX LAP - PELVIC PAIN Acuity LOS 022 00:22Address:[address] [facility] [address]Mdozrwp:PROVIDER INFORMATIONVITALS INFORMATIONVital Sign Triage LatestTemp OralTemp TemporalTemp IntravascularTemp AxillaryTemp Ynwzjz05 Sat 100 % 100 %Respiratory Rate 14 br/min 11 br/minPeripheral Pulse Rate 60 bpm 79 bpmApical Heart RateBlood Pressure 122 mmHg / 87 mmHg 132 mmHg / 76 mmHgComment:MEDICAL INFORMATIONAllergy Info:No Known Medication AllergiesPrescriptions Given:Prescription Displayacetaminophen-hydro codone ([place] 5 mg-325 mg oral tablet) 1 tab(s), PO, q6hr, Instructions: may take 1 or 2 tablets not to exceed 8 tablets/day, # 12 tab(s), 0 Refill(s), 07/17/17Home Meds Displayibuprofen (ibuprofen 600 mg oral tablet) 1 tab(s) ( 600 mg ), PO, q6hr, # 40 tab(s), 0 Refill(s)Medication List:Fill New Prescriptions:acetaminophe n-hydrocodone ([place] 5 mg-325 mg oral tablet) 1 tab(s) [...] Dr Clark (MHKHARRISON)Follow up:With: Address: When:Jasvir Clark [address] [place], [place] [id number] [facility] (1) In 2 weeks 07/29/17Comments:Call for follow up appointmentWith: Address: When:Unlisted ProviderDIAGNOSIS1:Pelvic and perineal pain; 2:Ovarian cyst, leftComment:PHYS DOC NOTES Normal [facility] Inpatient Patient Summaryon 07-15-2017 Inpatient Patient Summary [place] [id number] patient Discharge InstructionsName: KOLE AIKEN LDOB: [birth year] Address: [address] [place], [place] [address]Primary Care Provider:Name: Provider, UnlistedPhone:After you are discharged if you find you have any questions, please, call [phone] ext [phone] to speak to a nurse.Discharge Diagnosis: 1:Pelvic [...] or business decisions or sign any legal documentsJ.W. [facility] would like to thank you for allowing us to assist you with your healthcare needs. The following includes patient education materials and information regarding your injury/illness.KOLE AIKEN has been given the following list of follow-up instructions, prescriptions, and patient education materials:Follow-up InstructionsWith: Address: When:Jasvir Clark [address] [place] [address] [facility] () In 2 weeks 07/29/17Comments:Call for follow up appointmentWith: Address: When:Unlisted ProviderMedicationsDuring the course of your visit, your medication list was updated with the most current information. The details of those changes are reflected below:New MedicationsPrinted Prescriptionsacetaminophen -hydrocodone ([place] 5 mg-325 mg oral tablet) 1 tab(s) [...] that you can keep with you.acetaminophen-hydrocod one ([place] 5 mg-325 mg oral tablet) 1 tab(s) [...] the throat and abdomen.HOME CARE INSTRUCTIONS? Take ltdy-net-ohinuhj and prescription medicines only as told by [...] and water are not available, use hand ocean export account manager.? Change your dressings (Band Aids) daily [...] health care provider.Document Released: 02/26/2016 Document Reviewed: 02/26/2016Elsevkm Interactive Patient Education ?2016 VitaFlavor.Viruses or BacteriaWhat?s got you sick?Antibiotics only treat [...] Aren?t Always the Answerwww.cdc.gov/getsmart GETSMARTKnow When Antibiotics [place] Department of Health and Human ServicesCenters for Disease Control and Prevention November 2013 [facility] MAGR PACU Record [facility] Primary Physician: Jasvir Clark DO Finalized Date/Time: 07/15/17 10:26:17 Pt. Name: KOLE AIKEN/Sex: 1980 FEMALE Med Rec #: [id number] Physician: Jasvir Clark DO Financial #: [id number] Pt. Type: D Room/Bed: / Admit/Disch: 07/15/17 [...] Signed By: Scarlett Botello RN 07/15/17 10:26 [facility] MAGR Postoperative Recordon 07-15-2017 MAGR Postoperative Record MAGR Phase II Record Summary Primary Physician: Jasvir Clark DO Finalized Date/Time: 07/15/17 11:31:59 Pt. Name: KOLE AIKEN Ila Garibay./Sex: 1980 FEMALE Med Rec #: [id number] Physician: Jasvir Clark DO Financial #: [id number] Pt. Type: D Room/Bed: / Admit/Disch: 07/15/17 [...] Signatures Signed By: Elisha Craig 07/15/17 11:31 [facility] MAGR Preoperative Recordon 0 07-15-2017 MAGR Preoperative Record MAGR Pre-Op Record Summary Primary Physician: Jasvir Clark DO Finalized Date/Time: 07/15/17 08:03:31 Pt. Name: KOLE AIKEN /Sex: 1980 FEMALE Med Rec #: [id number] Physician: Jasvir Clark DO Financial #: [id number] Pt. Type: D Room/Bed: / Admit/Disch: 07/15/17 [...] consent correct. General Comments: arrives ambulatory to w, denies recent cp, sob, new illnesses, pacemaker, Finalized By: Grisel Conley RN Document Signatures Signed By: Grisel Conley RN 07/15/17 08:03 Normal [facility] Operative Report - Surgeon/P chikis 07-15-2017 Operative Report - Surgeon/Physician DATE OF PROCEDURE: 07/15/2017PREOPERATIVE DIAGNOSES: Pelvic pain, ovarian cysts.POSTOPERATIVE DIAGNOSES: Pelvic pain, ovarian cysts.PROCEDURE: Diagnostic laparoscopy, operative laparoscopy, left ovariancystectomy, bowel adhesiolysis.SURGEON: Jasvir Clark DOANESTHESIA: General by Eduardo Bah M.D.COMPLICATIONS: [...] then grasped with a single toothtenaculum. An [place] uterine manipulator was then advanced into the [...] was in the cul-de-sac and then the [place] adult remedial education instructor was placedthrough the second trocar site and the area was irrigated and suctioned. Theinstruments were then removed from the patient's abdomen and the incisionswere then repaired with 4-0 Vicryl in a subcuticular manner. Marcaine 0.25%,20 cc was injected into the incision sites. The [place] uterine manipulatorwas then removed from the vagina with no bleeding noted from the cervix. Thepatient tolerated the procedure well. Sponge, lap, needle and instrumentcounts were correct x2. The patient was taken to the recovery room awake andin stable condition.BRANDYN Fierro #: [id number]: 07/15/2017T: 07/15/2017[Electronically Signed on: 07/16/2017 18:21 EDT] Jasvir Clark DO, D.O.[Verified on: 07/16/2017 18:21 EDT] Jasvir Clark DO, D.O.[Transcribed on: 07/15/2017 14:26 EDT][facility] Progress Note - Nurseon 06-29 Progress Note - Nurse Pre op phone call made, spoke with patient. Confirmed time of arrival for 0600 on 07/15/17[Electronically Signed on: 07/14/2017 10:27 EDT] Sandra Hernandes RN[Verified on: 07/14/2017 10:27 EDT] Sandra Hernandes RN [facility] Coding Summaryon 07-11-2017 Coding Summary CODING DATE: 018 [facility] STATUS: Home PAYOR: Medicaid HMO [...] Vicky Angel Date Saved: 07/11/2017 08:10 am [facility] .Auto Diff 1on 07-01-2017 Auto Baso % 0.6 % Normal 0.2-2.0 [facility] Comment on above: Performed By: #### 7 [id number], [id number] ####[facility] (DEFAULT)[address] [place] [address] Auto [place] % 8 % Normal 1-12 [facility] Comment on above: Performed By: #### 7 [id number], [id number] ####[facility] (DEFAULT)[address] [place] [address] Auto Neut % 62 % Normal 44-88 [facility] Comment on above: Performed By: #### 7 [id number], [id number] ####[facility] (DEFAULT)[address] [place] [address] Baso Abs# 0.0 x10 Normal 0.0-0.2 [facility] Comment on above: Performed By: #### 7 [id number], [id number] ####[facility] (DEFAULT)[address] [place] [address] Eos Abs# 0.6 x10 High 0.0-0.4 [facility] Comment on above: Performed By: #### 7 [id number], [id number] ####[facility] (DEFAULT)[address] [place] [address] Eosinophils/100 leukocytes 6.5 % High 0.9-4.0 [facility] Comment on above: Performed By: #### 7 [id number], [id number] ####[facility] (DEFAULT)[address] [place] [address] Lymphocytes 1.9 x10 Normal 1.3-2.9 [facility] Comment on above: Performed By: #### 7 [id number], [id number] ####[facility] (DEFAULT)[address] [place] [address]23 Lymphocytes/100 leukocytes 23 % Normal 14-48 [facility] Comment on above: Performed By: #### 7 [id number], [id number] ####[facility] (DEFAULT)[address] [place] [address] [place] Abs# 0.7 x10 Normal 0.0-0.8 [facility] Comment on above: Performed By: #### 7 [id number], [id number] ####[facility] (DEFAULT)[address] [place] [address] 36294 Neut Abs# 5.2 x10 Normal 1.5-9.2 [facility] Comment on above: Performed By: #### 7 [id number], [id number] ####[facility] (DEFAULT)[address] [place] [address] 87805 CBC w/ Auto Diffon 8 Erythrocyte distribution width Auto Ratio (RBC) 12.7 % Normal 11.5-15.0 [facility] Comment on above: Performed By: #### 7 [id number], [id number] ####[facility] (DEFAULT)[address] [place] [address] 24374 Erythrocytes (RBC) 4.37 x10 Normal 3.70-5.30 [facility] Comment on above: Performed By: #### 7 [id number], [id number] ####[facility] (DEFAULT)[address] [place] [address] Hematocrit (HCT) 40.2 % Normal 33.7-40.4 [facility] Comment on above: Performed By: #### 7 [id number], [id number] ####[facility] (DEFAULT)[address] [place] [address] Hemoglobin mass conc (Bld) 13.6 g/dL Normal 11.3-15.9 [facility] Comment on above: Performed By: #### 7 [id number], [id number] ####[facility] (DEFAULT)[address] [place] [address] Man Diff? Auto Normal [facility] Comment on above: Performed By: #### 7 [id number], [id number] ####[facility] (DEFAULT)[address] [place] [address] MCH 31 pg Normal 24-34 [facility] Comment on above: Performed By: #### 7 [id number], [id number] ####[facility] (DEFAULT)[address] [place] [address] 57197 MCHC mass conc (RBC) 34 g/dL Normal 26-37 [facility] Comment on above: Performed By: #### 7 [id number], [id number] ####[facility] (DEFAULT)[address] [place] [address]55 MCV 92 fL Normal 81-100 [facility] Comment on above: Performed By: #### 7 [id number], [id number] ####[facility] (DEFAULT)[address] [place] [address] 39562 Platelet mean volume (PMV) 9.0 fL Normal 6.3-10.2 [facility] Comment on above: Performed By: #### 7 [id number], [id number] ####[facility] (DEFAULT)[address] [place] [address] Platelets 350 x10 Normal 138-427 [facility] Comment on above: Performed By: #### 7 [id number], [id number] ####[facility] (DEFAULT)[address] [place] [address] WBC (Leukocytes) 8.4 x10 Invalid Interpretation Code [facility] Comment on above: Performed By: #### 7 [id number], [id number] ####[facility] (DEFAULT)[address] [place] [address] Vital Signs Date Time Vital Sign Value Performing Clinician Wilber jensen 06-02-2024 15:15-0500 Body mass index (BMI) [Ratio] 21.91 kg/m2 Julisa RIVERO Work Phone: [facility] 06-02-2024 15:15-0500 Body weight 54.34 kg Julisa RIVERO Work Phone: [facility] 06-02-2024 15:15-0500 Diastolic blood pressure 72 mm[Hg] Julisa RIVERO Work Phone: [facility] 06-02-2024 15:15-0500 Systolic blood pressure 128 mm[Hg] Julisa RIVERO Work Phone: [facility] Encounters Encounter Date Encounter Type Care Provider Facility Start: 07-16-2024 End: 07-16-2024 Clinisync Result Encounter Donny Ryanne DO Work Phone: [facility] External Department Unsolicited Start: 07-16-2024 End: 07-16-2024 Clinisync Result Encounter Donny Ryanne DO Work Phone: [facility] External Department Unsolicited Start: 07-16-2024 End: 07-16-[facility] Start: 06-21-2024 End: 06-21-2024 ambulatory DONNY RYANNE Not Available Start: 06-02-2024 End: 06-02-2024 Patient encounter procedure Julisa RIVERO Work Phone: [facility] Work Phone: Start: 06-02-2024 End: 06-02-2024 Periodic preventive med est patient 40-64yrs Julisa RIVERO Work Phone: [facility] Comment on above: Well woman [...] Clinisync Result Encounter Julisa RIVERO Work Phone: [facility] External Department Unsolicited Start: 10-18-2023 End: 10-18-2023 Emergency department patient visit [facility] Start: 09-01-2023 End: 09-01-2023 ambulatory DONNY RYANNE Not Available Start: 11-28-2021 End: 11-28-[address] VELASQUEZ HUMPHRIES Facility:[facility] Start: 11-28-2021 End: 11-28-2021 Departed Referred DO Ruthie Garsia Work Phone: [facility] Start: 08-29-2021 End: 08-29-[address] VELASQUEZ HUMPHRIES Facility:[facility] Start: 08-21-2021 End: 08-22-[address] VELASQUEZ HUMPHRIES Facility:[facility] Start: 07-15-2017 End: 07-17-2017 Ambulatory [facility] Facility:[facility] Start: 07-02-2017 End: 07-02-2017 Ambulatory [facility] Facility:[facility] Procedures Date Procedure Procedure Detail Performing Clinician Start: 07-16-2024 ALL CBC WITH AUTO DIFF Donny Ryanne DO Work Phone: Start: 06-02-2024 IGP,APTIMA HPV,AGE GDLN Julisa RIVERO Work Phone: Start: 10-15-2022 H/O: hysterectomy Status post hysterectomy Julisa RIVERO Work Phone: Plan of Treatment Date Care Activity Detail Author Start: 06-21-2024 End: 06-21-2024 Patient encounter procedure 06/21/2024 11:20 AM EDT Consult [facility] [address] [place] [address] Donny Pearl DO [address] [place], [place] [id number] [facility] Start: 06-02-2024 End: 06-02-2024 Patient encounter procedure 06/02/2024 3:00 PM EST Office Visit [facility] [address] [place] [address] Julisa Bai PA [address] [place], [place] [id number] Arrived [facility] Comment on above: Arrived Start: 06-02-2024 End: 08-02-2025 MG Breast - bilateral Screening Bilateral screening mammogram Imaging Routine Breast cancer screening by mammogram Expected: 06/02/2024 (Approximate), Expires: 08/02/2025 [facility] Work Phone: Comment on above: Expected: 06/02/2024 (Approximate), Expires: 08/02/2025 THIN PREP TIS PAP AN D HR HPV DNA THIN PREP TIS PAP AND HR HPV DNA Pathology and Cytology Routine Well woman exam with routine gynecological exam Ordered: 06/02/2024 [facility] Comment on above: Ordered: 06/02/2024 Payers Date Payer Category Payer Self-pay [id number] 2020 Medicaid (Managed Care) [employer] [id number] 1980 Unknown [id number]. 593 1979 Unknown [id number] [id number]. 593 1979 Unknown [id number] [id number]. 593 1979 Unknown [id number] [id number]. 1286 1979 Unknown [id number] [id number]. 1259 1979 Unknown [id number] [id number]. 1259 1979 Unknown [id number] [id number]. 1259 1960 Medicaid [id number] Unknown [facility] [id number] Unknown [id number] [id number]. 531 Social History Date Type Detail Facility [facility] Work Phone: Start: 1980 Sex Assigned At Female [facility] Start: 10-02-2022 [facility] History of tobacco use Cigarette Smoker [facility] Start: 09-01-2023 End: 06-02-2024 Alcoholic beverage intake Current drinker of alcohol (finding) [facility] Start: 09-01-2023 History of Social function [facility] Start: 09-01-2023 Tobacco use panel [facility] Start: 10-02-2022 Alcohol Comment occasional alcohol u se [facility] Start: 1980 Sex assigned at Not on file N [facility] History of Present illness Narrative 06-02-2024 [...] incision and drainage abscess-labia OTHER SURGICAL HISTORY 1999 laser surgery OVARIAN CYST REMOVAL 2018 PAP [...] nursing note reviewed. Exam conducted with a printer floor covering assistant present. Vitals: Estimated body mass index is [...] Note Facility Evaluation note No assessment information availa [facility] Work Phone: Evaluation note Note Date & [...] Date/ Time Advance Directives No August 17 3:34pm Chief Complaint and Reason for Visit Chief Complaint Vulvular Abscess Additional Source Comments INFORMATION SOURCE (unrecogn ized section and content) DATE CREATED AUTHOR 09/16/2017 [facility] DATE CREATED AUTHOR AUTHOR'S ORGANIZ ATION 12/06/2021 [facility] DATE CREATED AUTHOR AUTHOR'S ORGANIZ ATION 10/21/2023 [facility] DATE CREATED AUTHOR AUTHOR'S ORGANIZ ATION 06/22/2024 [facility] DATE CREATED AUTHOR AUTHOR'S ORGANIZ ATION 07/18/2024 [facility] Care Teams (unrecognized sec tion and content) Team Status: Inactive Member Role Status Dates Ruthie Garsia DO Primary Care Provider Active Liz Taveras DO Attending Provider Active Team Status: Active Member Role Status Dates Ruthie Garsia DO Primary Care Provider Active Goals (unrecognized section [...] BE BASED ON THE PRIMARY CLINICAL RECORDS. [facility]. provides no warranty or guarantee of the accuracy or completeness of information in this document.
[2024-07-19] MEDS: HYDROCODONE/ACET 5-325 MG TABLET 1 TAB PO (18:12)
[2024-07-19] MEDS: CEPHALEXIN 500 MG CAPSULE PO (18:13)
== END 2024-07-19 18:25 | disposition home or self-care (01) ==
PROVIDERS: Emergency Provider Emergency Medicine
DX: G89.18 Other acute postprocedural pain (principal); Z98.890 Other specified postprocedural states
CPT/HCPCS: 99283